=== PATIENT | female | born 1965 | race Asian ===

== ENCOUNTER 2020-02-20 05:50 | Outpatient (RCR) | payer BC ==
[~2020-02-20] VITALS: Ht 157.5 cm; Wt 63.2 kg
[2020-02-20] MEDS ORDERED: HYDR25TA4 PO (12:24)
[2020-02-20] MEDS ORDERED: ATEN25TA PO (12:24)
[2020-02-20] MEDS ORDERED: FAMO-119 PO (12:24)
[2020-02-20] MEDS ORDERED: MV-M1TAB57 PO (12:24)
[2020-02-20] MEDS ORDERED: LOSA100T57 PO (12:24)
== END 2020-02-20 12:25 | disposition home or self-care (01) ==
LOC: PREOP 05:50
PROVIDERS: ATTEND Surgery
DX: Z01.818 Encounter for other preprocedural examination (principal)

== ENCOUNTER → 2020-02-22 | Outpatient (CLI) | payer BC ==
[~2020-02-22] MED LIST: ATEN25TA PO; FAMO-119 PO; HYDR25TA4 PO; LOSA100T57 PO; MV-M1TAB57 PO
== END ==
LOC: LAB FS 09:59
PROVIDERS: ATTEND Surgery
DX: K21.9 Gastro-esophageal reflux disease without esophagitis (principal); Z20.828 Contact with and (suspected) exposure to other viral communicable diseases; Z85.048 Personal history of other malignant neoplasm of rectum, rectosigmoid junction, and anus
CPT/HCPCS: 87635

== ENCOUNTER 2020-02-25 08:44 | Day surgery (SDC) | payer BC ==
[2020-02-25] VITALS (9 sets, daily range): BP systolic 83–139; BP diastolic 50–90
[~2020-02-25] VITALS: Ht 157.5 cm; Wt 63.2 kg
[2020-02-25] MEDS ORDERED: LACTATED RINGERS 1,000 ML IV STA (08:53)
[2020-02-25] MEDS ORDERED: LACTATED RINGERS 1,000 ML IV ONE (08:58)
[2020-02-25] MEDS ORDERED: HURRICAINE EXT TUBE (BENZOCAINE) XX PRN (09:00)
--- OUTSIDE RECORDS SUMMARY | 2020-02-25 09:00 | XMS REPORT | Continuity of Care Document ---
Author Organization Unknown Address Unknown Phone Unavailable Allergies Active Description Code Type Severity Reaction Onset Reported/Identified Relationship to Patient Clinical Status Yes No Known Drug Allergies [id number] Drug Allergy Unknown N/A 02/20/2020 Medications There is no data. Problems Date Dx Coded Attending Type Code Diagnosis Diagnosed By 02/20/2020 SUZY LOPEZ DO Ot Z01.8 18 ENCOUNTER FOR OTHER PREPROCEDURAL EXAMIN Procedures There is no data. Results Test Result Range LIPID PANEL - 01/03/19 10:49 CHOLESTEROL, TOTAL 211 mg/dL <200 HDL CHOLESTEROL 60 mg/dL >50 TRIGLYCERIDES 169 mg/dL <150 LDL-CHOLESTEROL 122 mg/dL (calc) NRG CHOL/HDLC RATIO 3.5 (calc) <5.0 NON HDL CHOLESTEROL 151 mg/dL (calc) <13 0 GLUCOSE, SERUM - 01/03/19 10:49 GLUCOSE 106 mg/dL 65-99 Encounters ACCT No. Visit Date/Time Discharge Status Pt. Type Provider Facility Loc./Unit Complaint [id number] 02/14/2020 15:15:00 02/14/2020 23:59: 59 CLS Outpatient JOSE DAMON [facility] [id number] 01/03/2019 17:15:00 Document Registration [id number] 02/20/2020 05:50:00 020 12:25:00 DIS Outpatient SUZY LOPEZ DO [facility] PREOP COLONOSCOPY/EGD [id number] 02/25/2020 08:44:[address] Outpatient SUZY LOPEZ DO [facility] ENDO HX RECTAL CA/REFLUX [id number] 02/22/2020 09:59:[address] Outpatient SUZY LOPEZ DO [facility] LAB FS PRE OP REQUIREMENT
[2020-02-25] MEDS ORDERED: PROPOFOL INJECTION 50 ML IV ONE ×2 (09:14→09:20)
[2020-02-25] MEDS ORDERED: MIDAZOLAM 2 MG/2 ML (VERSED) VIAL ONE (09:14)
--- NOTE | 2020-02-25 09:15 | Progress Note-Pre Operative ---
Pre-Operative Progress Note H&P Reviewed The H&P was reviewed, patient examined and no changes noted. Time Seen by Provider: 09:14 Date H&P Reviewed: Feb 25, 2020 Time H&P Reviewed: 09:15 Pre-Operative Diagnosis: Hx of Rectal CA, Gastritis SUZY LOPEZ DO Feb 25, 2020 09:15
--- NOTE | 2020-02-25 10:01 | Progress Note-Post Operative ---
Post-Operative Progess Note Surgeon (s)/Compliance Review Officer (s) Surgeon SUZY LOPEZ DO Compliance Review Officer: TULIO MitchellII Pre-Operative Diagnosis Hx of Rectal CA, Gastritis Post-Operative Diagnosis Gastritis Hiatal hernia Internal Hemorrhoids Procedure & Operative Findings Date of Procedure 02/25/20 Procedure Performed/Findings EGD with bx Colonoscopy Anesthesia Type IV sedation by DATABASE SUPPORT Estimated Blood Loss Estimated blood loss (mL): scant Specimens/Packing Specimens Removed antral bx body of stomach bx GE jxn bx SUZY LOPEZ DO Feb 25, 2020 10:01
--- NOTE | 2020-02-25 10:02 | Endoscopy Discharge Instruct ---
Endo Procedure/Findings Findings 1.: Gastritis 2.: Hiatal Hernia 3.: Internal Hemorrhoids Discharge Instructions - Activity: You might feel a little sleepy until tomorrow. This is due to the medicine you received to relax you. Until tomorrow, you should: NOT drive a car, operate machinery or power tools. NOT drink any alcoholic beverages. NOT make any important decisions or sign importortant papers. Do not return to work until tomorrow, unless otherwise instructed. Resume previous activities tomorrow. Diet: Start by taking liquids. If you tolerate liquids, advance to solid food. 1.: Colonscopy in 5 years, EGD in 3 years Notify Physician - If you experience excessive bleeding, unusual abdominal pain, fever, or chest pain, contact your doctor immediately. SUZY LOPEZ DO Feb 25, 2020 10:02
--- NOTE | 2020-02-25 12:08 | Anesthesia-General Post-Op ---
MAC Patient Condition Mental Status/LOC: Same as Preop Cardiovascular: Satisfactory Nausea/Vomiting: Absent Respiratory: Satisfactory Pain: Controlled Complications: Absent Post Op Complications Complications None Follow Up Care/Instructions Patient Instructions None needed. Anesthesiology Discharge Order Discharge Order Patient is doing well, no complaints, stable vital signs, no apparent adverse anesthesia problems. No complications reported per nursing. KENDALL ROJAS CRNA Feb 25, 2020 12:08
--- NOTE | 2020-02-25 15:15 | OPERATIVE REPORT ---
DATE OF SERVICE: PREOPERATIVE DIAGNOSES: Gastritis, history of rectal cancer. POSTOPERATIVE DIAGNOSES: Gastritis, hiatal hernia, questionable gastric ulcer. Internal hemorrhoids. PROCEDURES: 1. EGD with biopsy. 2. Colonoscopy. SURGEON: Erik Ortega DO RAG PRODUCTION WORKER: Marissa Rai, 3. SPECIMEN: Antral biopsy, biopsy from an ulcer in the body of stomach and then biopsy of the GE junction. BLOOD LOSS: Scant. FLUIDS: Per anesthesia. POSTOPERATIVE CONDITION: Stable. INDICATION FOR PROCEDURE: The patient is a 55-year-old female who states she has a history of rectal cancer that she had "scraped off" and she had some gastritis and needed a workup. FINDINGS: The patient had some mild gastritis what looked like an ulcer in the stomach and possibly a small hiatal hernia. In the colon, she only had some internal hemorrhoids. No other obvious pathology. PROCEDURE NOTE: After informed consent was obtained, the patient was brought to the endoscopy suite, placed in bed in left lateral decubitus position. She was administered IV sedation by the NAIL POLISH BRUSH MACHINE FEEDER who then monitored her vitals the entire time, heart rate, blood pressure and pulse ox and we started with the EGD, placing scope down the mouth through the esophagus into the stomach, pushed towards the antrum. Antrum looked like there is some mild gastritis, took a picture, pushed into the duodenum. Duodenum looked fine. Pulled back and did a biopsy of the antrum. Retroflexed the scope, saw what looked like some bleeding and then possible ulcer, did a biopsy right around this ulcer and also saw a small hiatal hernia, took a picture of this and then pulled the scope into the GE junction, did another biopsy, then pushed the scope into the stomach, suctioned the air out and then pulled the scope up the esophagus and out the mouth. Switched camera, switched gloves, went down below, started the colonoscopy, pushed in to about 140 cm, able to get all the way to cecum, took a picture of appendiceal orifice and then able to get into the terminal ileum, took a picture and then slowly withdrew the scope, insufflating the circumferential bauer looking at the cecum up the ascending colon to the hepatic flexure, then down the transverse colon, splenic flexure, into the descending colon and down into the sigmoid and in the sigmoid, at about 20 to 30 cm, saw some tattooing, looked very closely through here, did not see any polyps or any other pathology and continued down into the rectum, retroflexed in the rectal vault, saw some minimal internal hemorrhoids, took a picture of this and then removed the scope. The patient tolerated the procedure. She was recovered in endoscopy suite. Job ID: [id number] DocumentID: [id number] Dictated Date: 02/25/2020 10:48:13 Certified Medical Coder Date: 02/25/2020 15:14:15 Dictated By: DO MODESTO GREEN
== END 2020-02-25 11:00 | disposition home or self-care (01) ==
LOC: ENDO 08:44
PROVIDERS: ATTEND Surgery
DX: K44.9 Diaphragmatic hernia without obstruction or gangrene (principal); K29.50 Unspecified chronic gastritis without bleeding; K64.8 Other hemorrhoids; K21.0 Gastro-esophageal reflux disease with esophagitis; I10 Essential (primary) hypertension; F41.9 Anxiety disorder, unspecified; Z79.899 Other long term (current) drug therapy; Z85.048 Personal history of other malignant neoplasm of rectum, rectosigmoid junction, and anus; Z83.3 Family history of diabetes mellitus

== ENCOUNTER 2022-05-19 13:31 | Observation (INO) | payer BC ==
[~2022-05-19] VITALS: Ht 152.4 cm; Wt 59.4 kg
[2022-05-19 13:56] LABS: BILIRUBIN,URINE NEGATIVE (NEGATIVE); CLARITY,URINE CLEAR; COLOR,URINE YELLOW; GLUCOSE, URINE (UA) NEGATIVE (NEGATIVE); KETONES,URINE NEGATIVE (NEGATIVE); LEUKOCYTE ESTERASE ,URINE NEGATIVE (NEGATIVE); NITRITE,URINE NEGATIVE (NEGATIVE); PH,URINE 7.5 (5-9); PROTEIN,URINE 1+ (NEGATIVE)
[2022-05-19 14:05] LABS: BACTERIA,URINE NEGATIVE /HPF; RBC,URINE 0-2 /HPF; SQUAMOUS EPITHELIAL CELL,UR RARE /HPF
[2022-05-19] MEDS ORDERED: LACTATED RINGERS 1,000 ML IV ONE (14:30)
[2022-05-19] MEDS ORDERED: ONDANSETRON 4 MG/2 ML (SDV) Z0FRAN IVP ONE (14:30)
[2022-05-19] MEDS ORDERED: fentaNYL INJ 100 MCG/2 ML AMP IVP ONE (14:30)
[2022-05-19 14:32] LABS: ALBUMIN 4.4 GM/DL (3.2-4.5); BILIRUBIN,TOTAL 0.8 MG/DL (0.1-1.0); CALCIUM 9.7 MG/DL (8.5-10.1); CREATININE SERUM 0.67 MG/DL (0.60-1.30); POTASSIUM 2.7 MMOL/L (3.6-5.0); TOTAL PROTEIN 7.9 GM/DL (6.4-8.2)
[2022-05-19] MEDS ORDERED: NS 100 ML (IVPB) BAG IV ONE (15:00)
[2022-05-19] MEDS ORDERED: IOHEXOL 350 MG/ML 100 ML (OMNIPAQUE 350) VIAL IV ONE (15:00)
[2022-05-19] MEDS ORDERED: CATHETER FLUSH 10 ML SYR IV PRN (15:00)
[2022-05-19] MEDS ORDERED: HOLD METFORMIN - RECEIVED CONTRAST 20 ML VIAL IV SCH (15:00)
[2022-05-19] MEDS ORDERED: NS IV 1000 ML 1,000 ML IV SCH (15:00)
[2022-05-19] MEDS ORDERED: PROMETHAZINE INJ 25 MG/ML (PHENERGAN) AMP IVP ONE (15:30)
--- NOTE | 2022-05-19 15:58 | Diagnostic Imaging Report ---
PROCEDURE: CT chest, abdomen, and pelvis with contrast. TECHNIQUE: Multiple contiguous axial images were obtained through the chest, abdomen, and pelvis after the administration of intravenous contrast. Auto Exposure Controls were utilized during the CT exam to meet ALARA standards for radiation dose reduction. INDICATION: Patient with history of colorectal carcinoma. Patient has low back pain and lower abdominal pain and dizziness. No prior studies are available for comparison. CT CHEST: No axillary, hilar or mediastinal lymphadenopathy is detected. No pericardial or pleural fluid is identified. No pulmonary infiltrates, nodules or masses are detected. CT ABDOMEN AND PELVIS: The liver and gallbladder are unremarkable. There is no biliary duct dilatation. Pancreas and spleen are unremarkable. No adrenal mass is detected. Kidneys are unremarkable. There is no hydronephrosis. Aorta is nonaneurysmal. There is an enlarged left para-aortic lymph node measuring 2.0 x 1.9 cm. No definite iliac or inguinal lymphadenopathy is identified. There is indeterminate low-density in the left pelvis just cephalad to the urinary bladder and lateral to the uterus measuring 2 cm. This could represent a lymph node as well. The bladder and uterus are unremarkable. No free fluid is identified. The bowel loops are normal caliber. Bony structures are nonacute. IMPRESSION: 1. Unremarkable CT of the chest. There is no evidence of thoracic lymphadenopathy or pulmonary metastatic disease. 2. Central retroperitoneal lymphadenopathy, concerning for metastatic disease. Questionable density in the right hemipelvis as well and pelvic sonography may be useful for further evaluation on nonemergent basis. No other abnormalities are seen. Dictated by: Dictated on workstation # [id number]
[2022-05-19] MEDS ORDERED: POTASSIUM CL 10MEQ/50ML IVPB 50 ML IV ONE (16:45)
[2022-05-19 16:50] LABS: BASOPHILS % (AUTO) 0 % (0-10); EOSINOPHILS # (AUTO) 0.1 10^3/uL (0.0-0.3); EOSINOPHILS % (AUTO) 1 % (0-10); HEMATOCRIT 34 % (35-52); LYMPHOCYTES # (AUTO) 2.2 10^3/uL (1.0-4.0); LYMPHOCYTES % (AUTO) 19 % (12-44); MEAN CORPUSCULAR HEMOGLOBIN 31 pg (25-34); MEAN CORPUSCULAR HGB CONC 36 g/dL (32-36); MEAN CORPUSCULAR VOLUME 85 fL (80-99); MONOCYTES # (AUTO) 0.7 10^3/uL (0.0-1.0); MONOCYTES % (AUTO) 6 % (0-12); NEUTROPHILS # (AUTO) 8.5 10^3/uL (1.8-7.8); NEUTROPHILS % (AUTO) 74 % (42-75); PLATELET COUNT 219 10^3/uL (130-400); WHITE BLOOD COUNT 11.5 10^3/uL (4.3-11.0)
--- NOTE | 2022-05-19 16:55 | ED Abdominal Pain ---
General Chief Complaint: - Reproductive Stated Complaint: KIDNEY STONES/DIZZY Nursing Triage Note: PT ARRIVED POV WITH COMPLAINTS OF LOWER BACK PAIN, LOWER ABD PAIN, AND DIZZINESS. PT STATED THAT SHE WAS SEEN BY HER PRIMARY CARE PROVIDER AND WAS TOLD THAT SHE HAS A KIDNEY STONE. Source of Information: Patient Exam Limitations: No Limitations History of Present Illness Date Seen by Provider: May 19, 2022 Time Seen by Provider: 13:44 Initial Comments This 57-year-old woman presents to the emergency room with complaints of left lower quadrant pain, nausea, vomiting, and excessive belching since early yesterday morning. She saw Dr. Damon yesterday and was prescribed hydrocodone and Zofran. She feels constipated. She provides little health history except for hypertension and history of colorectal cancer status postsurgical resection. She denies any dysuria or hematuria. She generally feels an easy and dizzy. She has no history of renal stones. Allergies and Home Medications Allergies Coded Allergies: No Known Drug Allergies (Unverified , 02/20/20) Patient Home Medication List Home Medication List Reviewed: Yes Atenolol (Atenolol) 25 Mg Tablet, 25 MG PO DAILY, (Reported) Entered as Reported by: JOÃO JONES on 02/20/20 1224 Famotidine (Pepcid) 20 Mg Tablet, 20 MG PO HS, (Reported) Entered as Reported by: JOÃO JONES on 02/20/20 1224 Hydrochlorothiazide (Hydrochlorothiazide) 25 Mg Tablet, 25 MG PO DAILY, (Reported) Entered as Reported by: JOÃO JONES on 02/20/20 1224 Losartan Potassium (Losartan Potassium) 100 Mg Tablet, 100 MG PO DAILY, (Reported) Entered as Reported by: JOÃO JONES on 02/20/20 1224 Mv-Mn/Folic Acid/Calcium/Vit K (Women's 50 Plus Multivit Tab) 1 Each Tablet, 1 EACH PO DAILY, (Reported) Entered as Reported by: JOÃO JONES on 02/20/20 1224 Review of Systems Review of Systems Constitutional: see HPI, dizziness; No fever EENTM: No Symptoms Reported Respiratory: No Symptoms Reported Cardiovascular: No Symptoms Reported Gastrointestinal: See HPI Genitourinary: See HPI Musculoskeletal: no symptoms reported Skin: no symptoms reported Psychiatric/Neurological: See HPI Endocrine: No Symptoms Reported Hematologic/Lymphatic: No Symptoms Reported Past Dlubvdm-Aeryvn-Bdbujk Hx Patient Social History Tobacco Use?: No Substance use?: No Alcohol Use?: No Immunizations Up To Date Tetanus Booster (TDap): Unknown Influenza Vaccine Up-to-Date: Yes; Up-to-Date Seasonal Allergies Seasonal Allergies: Yes Past Medical History Surgeries: Yes Abdominal (Colorectal cancer resection) Respiratory: No Cardiac: Yes Hypertension Neurological: No Reproductive Disorders: No Genitourinary: No Gastrointestinal: Yes Gastroesophageal Reflux Musculoskeletal: No Endocrine: No HEENT: No Cancer: Yes Rectal Did You Recieve Any Treatments: No Psychosocial: Yes Anxiety Integumentary: Yes (rash on hands) Blood Disorders: No Physical Exam Vital Signs Vital Signs - First Documented 05/19/22 13:45 Pulse 68 B/P (MAP) 158/80 (106) Pulse Ox 98 O2 Delivery Room Air Capillary Refill : Height/Weight/BMI Height: '" Weight: lbs. oz. kg; 25.00 BMI Method: General Appearance: WD/WN, mild distress HEENT: PERRL/EOMI, normal ENT inspection Neck: normal inspection Respiratory: lungs clear, normal breath sounds, no respiratory distress Cardiovascular: regular rate, rhythm, no edema, no murmur Gastrointestinal: normal bowel sounds, soft, tenderness (Left lower) Extremities: normal inspection, no pedal edema Neurologic/Psychiatric: case management director II-XII nml as tested, no motor/sensory deficits, alert, normal mood/affect Skin: normal color, warm/dry Progress/Results/Core Measures Results/Orders Lab Results Laboratory Tests Test 05/19/22 13:45 05/19/22 14:00 Range/Units Urine Color YELLOW Urine Clarity CLEAR Urine pH 7.5 5-9 Urine Specific [place] 1.025 H 1.016-1.022 Urine Protein 1+ H NEGATIVE Urine Glucose (UA) NEGATIVE NEGATIVE Urine Ketones NEGATIVE NEGATIVE Urine Nitrite NEGATIVE NEGATIVE Urine Bilirubin NEGATIVE NEGATIVE Urine Urobilinogen 0.2 < = 1.0 MG/DL Urine Leukocyte Esterase NEGATIVE NEGATIVE Urine RBC (Auto) 1+ H NEGATIVE Urine RBC 0-2 /HPF Urine WBC NONE /HPF Urine Squamous Epithelial Cells RARE /HPF Urine Crystals NONE /LPF Urine Bacteria NEGATIVE /HPF Urine Casts NONE /LPF Urine Mucus NEGATIVE /LPF Urine Culture Indicated NO White Blood Count 11.5 H 4.3-11.0 10^3/uL Red Blood Count 3.93 3.80-5.11 10^6/uL Hemoglobin 12.0 11.5-16.0 g/dL Hematocrit 34 L 35-52 % Mean Corpuscular Volume 85 80-99 fL Mean Corpuscular Hemoglobin 31 25-34 pg Mean Corpuscular Hemoglobin Concent 36 32-36 g/dL Red Cell Distribution Width 11.8 10.0-14.5 % Platelet Count 219 130-400 10^3/uL Mean Platelet Volume 10.0 9.0-12.2 fL Immature Granulocyte % (Auto) 0 % Neutrophils (%) (Auto) 74 42-75 % Lymphocytes (%) (Auto) 19 12-44 % Monocytes (%) (Auto) 6 0-12 % Eosinophils (%) (Auto) 1 0-10 % Basophils (%) (Auto) 0 0-10 % Neutrophils # (Auto) 8.5 H 1.8-7.8 10^3/uL Lymphocytes # (Auto) 2.2 1.0-4.0 10^3/uL Monocytes # (Auto) 0.7 0.0-1.0 10^3/uL Eosinophils # (Auto) 0.1 0.0-0.3 10^3/uL Basophils # (Auto) 0.0 0.0-0.1 10^3/uL Immature Granulocyte # (Auto) 0.0 0.0-0.1 10^3/uL Sodium Level 124 *L 135-145 MMOL/L Potassium Level 2.7 L 3.6-5.0 MMOL/L Chloride Level 83 L 98-107 MMOL/L Carbon Dioxide Level 29 21-32 MMOL/L Anion Gap 12 5-14 MMOL/L Blood Urea Nitrogen 8 7-18 MG/DL Creatinine 0.67 0.60-1.30 MG/DL Estimat Glomerular Filtration Rate 102 BUN/Creatinine Ratio 12 Glucose Level 146 H 70-105 MG/DL Calcium Level 9.7 8.5-10.1 MG/DL Corrected Calcium 9.4 8.5-10.1 MG/DL Magnesium Level 1.8 1.6-2.4 MG/DL Total Bilirubin 0.8 0.1-1.0 MG/DL Aspartate Amino Transf (AST/SGOT) 31 5-34 U/L Alanine Aminotransferase (ALT/SGPT) 43 0-55 U/L Alkaline Phosphatase 69 40-136 U/L C-Reactive Protein High Sensitivity 10.25 H 0.00-0.50 MG/DL Total Protein 7.9 6.4-8.2 GM/DL Albumin 4.4 3.2-4.5 GM/DL Lipase 14 8-78 U/L My Orders Orders - RUPA COOMBS MD Comprehensive Metabolic Panel (05/19/22 13:44) Ua Culture If Indicated (05/19/22 13:44) Ed Iv/Invasive Line Start (05/19/22 13:44) Hs C Reactive Protein (05/19/22 14:22) Lipase (05/19/22 14:22) Ondansetron Injection (Zofran Injectio (05/19/22 14:30) Fentanyl Inj (Sublimaze Injection) (05/19/22 14:30) Lactated Ringers (Lr 1000 Ml Iv Solution (05/19/22 14:30) Ct Chest/Abdomen/Pelvis W (05/19/22 14:53) Ns Iv 1000 Ml (Sodium Chloride 0.9%) (05/19/22 15:00) Iohexol Injection (Omnipaque 350 Mg/Ml 1 (05/19/22 15:00) Received Contrast (Hold Metformin- Contr (05/19/22 15:00) Ns (Ivpb) (Sodium Chloride 0.9% Ivpb Bag (05/19/22 15:00) Sodium Chloride Flush (Catheter Flush Sy (05/19/22 15:00) Promethazine Injection (Phenergan Injec (05/19/22 15:30) Potassium Cl 10meq/50ml Ivpb (Kcl 10 Meq (05/19/22 16:45) Cbc With Automated Diff (05/19/22 16:43) Magnesium (05/19/22 16:43) Code/Resuscitation (05/19/22 17:12) Ed Admission (Communication) (05/19/22 17:15) Medications Given in ED Current Medications Medications Dose Ordered Sig/Katrin Route Start Time Stop Time Status Last Admin Dose Admin Fentanyl Citrate 50 mcg ONCE ONCE IVP 05/19/22 14:30 05/19/22 14:31 DC 05/19/22 14:30 50 MCG Iohexol 100 ml ONCE ONCE IV 05/19/22 15:00 11/2/22 15:01 DC 05/19/22 15:32 62 ML Lactated Ringer's 1,000 ml @ 0 mls/hr Q0M ONCE IV 05/19/22 14:30 05/19/22 14:31 DC 05/19/22 14:30 1,000 MLS/HR Ondansetron HCl 4 mg ONCE ONCE IVP 05/19/22 14:30 05/19/22 14:31 DC 05/19/22 14:30 4 MG Potassium Chloride 50 ml @ 50 mls/hr ONCE ONCE IV 05/19/22 16:45 05/19/22 17:44 DC 05/19/22 16:58 50 MLS/HR Promethazine HCl 25 mg ONCE ONCE IVP 05/19/22 15:30 05/19/22 15:31 DC 05/19/22 15:34 25 MG Sodium Chloride 10 ml NEEDED PRN IV 05/19/22 15:00 05/19/22 15:33 10 ML Sodium Chloride 100 ml ONCE ONCE IV 05/19/22 15:00 05/19/22 15:01 DC 05/19/22 15:33 80 ML Vital Signs/I&O 05/19/22 13:45 Pulse 68 B/P (MAP) 158/80 (106) Pulse Ox 98 O2 Delivery Room Air Blood Pressure Mean: 106 Progress Progress Note #1: Time: 16:57 Progress Note Patient was initially hydrated with a liter of LR. This was followed with normal saline after hyponatremia was identified. Patient is also significantly hypokalemic. Potassium replacement by IV route is now being initiated. Patient had refractory nausea and dry heaving after Zofran. Phenergan was administered. Unfortunately, Phenergan has caused some confusion and somnolence. CT of the abdomen pelvis was obtained and demonstrated retroperitoneal lymphadenopathy concerning for metastatic disease. Progress Note #2: Progress Note Dr. Shoemaker presented to the emergency room on behalf of Dr. Lopez to evaluate patient. He and I discussed the CT findings with her. No immediate action is being taken regarding the retroperitoneal lymphadenopathy. In the short-term, we will concentrate on managing her symptoms and treating her severe electrolyte abnormalities. She is being admitted to Dr. Alvarez. We discussed CODE STATUS and she would like to remain full code at this time. Mentation is improving after cognitive effect of Phenergan is wearing off. Diagnostic Imaging Diagonstic Imaging: CT Plain Films/CT/US/NM/MRI: abdomen, pelvis Comments CT viewed by me and report reviewed. See report below: NAME: TERRIE MUSA REC#: [id number] PT STATUS: REG ER : 1965 PHYSICIAN: RUPA COOMBS MD ADMIT DATE: 05/19/22/ER Draft Date of Exam:05/19/22 CT CHEST/ABDOMEN/PELVIS W PROCEDURE: CT chest, abdomen, and pelvis with contrast. TECHNIQUE: Multiple contiguous axial images were obtained through the chest, abdomen, and pelvis after the administration of intravenous contrast. Auto Exposure Controls were utilized during the CT exam to meet ALARA standards for radiation dose reduction. INDICATION: Patient with history of colorectal carcinoma. Patient has low back pain and lower abdominal pain and dizziness. No prior studies are available for comparison. CT CHEST: No axillary, hilar or mediastinal lymphadenopathy is detected. No pericardial or pleural fluid is identified. No pulmonary infiltrates, nodules or masses are detected. CT ABDOMEN AND PELVIS: The liver and gallbladder are unremarkable. There is no biliary duct dilatation. Pancreas and spleen are unremarkable. No adrenal mass is detected. Kidneys are unremarkable. There is no hydronephrosis. Aorta is nonaneurysmal. There is an enlarged left para-aortic lymph node measuring 2.0 x 1.9 cm. No definite iliac or inguinal lymphadenopathy is identified. There is indeterminate low-density in the left pelvis just cephalad to the urinary bladder and lateral to the uterus measuring 2 cm. This could represent a lymph node as well. The bladder and uterus are unremarkable. No free fluid is identified. The bowel loops are normal caliber. Bony structures are nonacute. IMPRESSION: 1. Unremarkable CT of the chest. There is no evidence of thoracic lymphadenopathy or pulmonary metastatic disease. 2. Central retroperitoneal lymphadenopathy, concerning for metastatic disease. Questionable density in the right hemipelvis as well and pelvic sonography may be useful for further evaluation on nonemergent basis. No other abnormalities are seen. Dictated on workstation # [id number] Dict: 05/19/22 1539 Trans: 05/19/22 1558 [id number] [id number] Interpreted by: MURIEL KINNEY MD Departure Communication (Admissions) Time/Spoke to Admitting y: 17:00 Dr. Alvarez Time/Spoke to Consulting Phy: 17:10 Dr. Shoemaker Impression Primary Impression: Hypokalemia Additional Impressions: Hyponatremia Left lower quadrant abdominal pain Nausea & vomiting Qualified Codes: R11.2 - Nausea with vomiting, unspecified Retroperitoneal lymphadenopathy Disposition: ADMITTED INPATIENT Condition: Stable Admissions Decision to Admit Reason: Admit from ER (General) Decision to Admit/Date: May 19, 2022 Time/Decision to Admit Time: 17:00 Departure-Patient Inst. Referrals: JOSE DAMON MD (PCP/Family) Primary Care Physician Copy Copies To 1: SUZY LOPEZ DO Copies To 2: JOSE DAMON MD, JOSHUA T MD May 19, 2022 16:55
[2022-05-19] MEDS ORDERED: HYOSCYAMINE 0.125 MG (LEVSIN) TAB SL STA (17:53)
[2022-05-19 18:09] VITALS: BP 139/77
[2022-05-19 18:13] VITALS: BP 139/77
[2022-05-19] MEDS ORDERED: CALCIUM CARBONATE 500 MG (TUMS) TAB.CHEW PO PRN (18:15)
[2022-05-19] MEDS ORDERED: diphenhydrAMINE 25 MG TAB (BENADRYL) PO PRN (18:15)
[2022-05-19] MEDS ORDERED: MELATONIN 3 MG TABLET PO PRN (18:15)
[2022-05-19] MEDS ORDERED: LORazepam INJ 2 MG/ML (ATIVAN) VIAL IVP PRN (18:15)
[2022-05-19] MEDS ORDERED: LACTULOSE SYRUP 10GM/15ML (ENULOSE) 30ML UDC PO PRN (18:15)
[2022-05-19] MEDS ORDERED: polyethylene glycoL POWDER 17 GM (MIRALAX) PACK PO PRN (18:15)
[2022-05-19] MEDS ORDERED: BISACODYL 10 MG SUPP (DULCOLAX) PR PRN (18:15)
[2022-05-19] MEDS ORDERED: ANTACID SUSP 30 ML UDC (MYLANTA) PO PRN (18:15)
[2022-05-19] MEDS ORDERED: HYDROmorphone 2 MG/ML VIAL (DILAUDID) IV PRN (18:15)
[2022-05-19] MEDS ORDERED: ONDANSETRON 4 MG (ZOFRAN) ORAL DISSOLVE TAB PO PRN (18:15)
[2022-05-19] MEDS ORDERED: ENOXAPARIN 40 MG/0.4 ML (LOVENOX) SYR SC SCH (18:15)
[2022-05-19] MEDS ORDERED: ACETAMINOPHEN 325 MG TABLET PO PRN (18:15)
[2022-05-19] MEDS ORDERED: MILK OF MAGNESIA 400 MG/5 ML 30 ML UDC PO PRN (18:15)
[2022-05-19] MEDS ORDERED: ONDANSETRON 4 MG/2 ML (SDV) Z0FRAN IV PRN (18:15)
[2022-05-19] MEDS ORDERED: diphenhydrAMINE 50 MG/ML INJ (BENADRYL) IVP PRN (18:15)
[2022-05-19] MEDS ORDERED: morphine IMMEDIATE RELEASE 15 MG TABLET PO PRN (18:15)
[2022-05-19] MEDS: NS IV 1000 ML 1,000 ML IV SCH (18:27)
[2022-05-19] MEDS: POTASSIUM CL 10MEQ/50ML IVPB 50 ML IV SCH ×4 (18:27→21:47)
[2022-05-19] MEDS: SENNOSIDES 8.6 MG (SENOKOT) TAB PO SCH (19:43)
[2022-05-19] MEDS: DOCUSATE SODIUM 100 MG (COLACE) CAP PO SCH (19:43)
[2022-05-19 20:22] VITALS: BP 118/77
--- NOTE | 2022-05-19 20:36 | Consultation - Surgery ---
History of Present Illness History of Present Illness Patient Consulted On(sofiya/time) 05/19/22 20:33 Date Seen by Provider: May 19, 2022 Time Seen by Provider: 20:33 History of Present Illness Consult requested by Dr. Alvarez for nausea vomiting lower abdominal pain history of colorectal cancer. Patient is a 57-year-old female who yesterday began having episodes of nausea vomiting lower abdominal pain. Patient was given some hydrocodone and Zofran by her primary care provider which was improving so she came to the emergency department for further evaluation. Patient had multiple episodes of emesis. In order to get her emesis under control in the ER she was given Phenergan however this made her slightly sedated. Patient is able to answer questions but is slightly slow to do so. Pain in lower abdomen. Moderate pain no radiation. She has some family members with her as well. Patient with history of colorectal cancer which they states this was cut out and not required to have any further treatment. This was done at [facility] they believe in 2016. Patient in 2019 had a EGD and colonoscopy. She has not had any further investigation. Patient had a CT scan which demonstrated:IMPRESSION: 1. Unremarkable CT of the chest. There is no evidence of thoracic lymphadenopathy or pulmonary metastatic disease. 2. Central retroperitoneal lymphadenopathy, concerning for metastatic disease. Questionable density in the right hemipelvis as well and pelvic sonography may be useful for further evaluation on nonemergent basis. No other abnormalities are seen Allergies and Home Medications Allergies Coded Allergies: No Known Drug Allergies (Unverified , 02/20/20) Patient Home Medication List Home Medication List Reviewed: Yes Atenolol (Atenolol) 25 Mg Tablet, 25 MG PO DAILY, (Reported) Entered as Reported by: JOÃO JONES on 02/20/20 1224 Famotidine (Pepcid) 20 Mg Tablet, 20 MG PO HS, (Reported) Entered as Reported by: JOÃO JONES on 02/20/20 1224 Hydrochlorothiazide (Hydrochlorothiazide) 25 Mg Tablet, 25 MG PO DAILY, (Reported) Entered as Reported by: JOÃO JONES on 02/20/20 1224 Losartan Potassium (Losartan Potassium) 100 Mg Tablet, 100 MG PO DAILY, (Reported) Entered as Reported by: JOÃO JONES on 02/20/20 1224 Mv-Mn/Folic Acid/Calcium/Vit K (Women's 50 Plus Multivit Tab) 1 Each Tablet, 1 EACH PO DAILY, (Reported) Entered as Reported by: JOÃO JONES on 02/20/20 3791 Past Uptvgld-Vppnec-Qspcrc Hx Patient Social History Recent Hopitalizations: No Alcohol Use?: No Have you traveled recently?: No Immunizations Up To Date Tetanus Booster (TDap): Unknown Seasonal Allergies Seasonal Allergies: Yes Surgeries History of Surgeries: Yes Surgeries: Abdominal (Colorectal cancer resection) Respiratory History of Respiratory Disorde: No Cardiovascular History of Cardiac Disorders: Yes Cardiac Disorders: Hypertension Neurological History of Neurological Disord: No Reproductive System Hx Reproductive Disorders: No Genitourinary History of Genitourinary Disor: No Gastrointestinal History of Gastrointestinal Di: Yes Gastrointestinal Disorders: Gastroesophageal Reflux Musculoskeletal History of Musculoskeletal Dis: No Endocrine History of Endocrine Disorders: No HEENT History of HEENT Disorders: No Cancer History of Cancer: Yes Cancer: Rectal Psychosocial History of Psychiatric Problem: Yes Behavioral Health Disorders: Anxiety Integumentary History of Skin or Integumenta: Yes (rash on hands) Blood Transfusions History of Blood Disorders: No Reviewed Nursing Assessment Reviewed/Agree w Nursing PMH: Yes Family Medical History Significant Family History: No Pertinent Family Hx Review of Systems-General Constitutional: No chills, No diaphoresis EENTM: No blurred vision, No double vision Respiratory: No cough, No dyspnea on exertion Cardiovascular: No chest pain, No palpitations Gastrointestinal: abdominal pain (LLQ), nausea, vomiting Genitourinary: No decreased output, No discharge Musculoskeletal: No back pain, No gout, No joint pain Skin: No change in color, No change in hair/nails Psychiatric/Neurological: Denies Anxiety, Denies Depressed, Denies Emotional Problems All Other Systems Reviewed Negative Unless Noted: Yes (Negative excepted noted.) Physical Exam-General Problems Physical Exam Vital Signs Vital Signs - First Documented 05/19/22 05/19/22 05/19/22 13:45 18:09 18:13 Temp 36.5 Pulse 68 Resp 18 B/P (MAP) 158/80 (106) Pulse Ox 98 O2 Delivery Room Air FiO2 21 Capillary Refill : General Appearance: WD/WN, no apparent distress HEENT: PERRL/EOMI, normal ENT inspection Neck: non-tender, supple Respiratory: chest non-tender, no respiratory distress, no accessory muscle use Cardiovascular: regular rate, rhythm, no JVD Gastrointestinal: soft, tenderness (lower abdomen) Rectal: deferred (at this time) Back: normal inspection, no CVA tenderness Extremities: normal range of motion, normal inspection Neurologic/Psychiatric: alert, oriented x 3 (but appears fatigued) Skin: normal color, warm/dry Lymphatic: no adenopathy Data Review Labs Laboratory Tests 05/19/22 13:45: Urine Color YELLOW, Urine Clarity CLEAR, Urine pH 7.5, Urine Specific [place] 1.025H, Urine Protein 1+H, Urine Glucose (UA) NEGATIVE, Urine Ketones NEGATIVE, Urine Nitrite NEGATIVE, Urine Bilirubin NEGATIVE, Urine Urobilinogen 0.2, Urine Leukocyte Esterase NEGATIVE, Urine RBC (Auto) 1+H, Urine RBC 0-2, Urine WBC NONE, Urine Squamous Epithelial Cells RARE, Urine Crystals NONE, Urine Bacteria NEGATIVE, Urine Casts NONE, Urine Mucus NEGATIVE, Urine Culture Indicated NO 05/19/22 14:00: White Blood Count 11.5H, Red Blood Count 3.93, Hemoglobin 12.0, Hematocrit 34L, Mean Corpuscular Volume 85, Mean Corpuscular Hemoglobin 31, Mean Corpuscular Hemoglobin Concent 36, Red Cell Distribution Width 11.8, Platelet Count 219, Mean Platelet Volume 10.0, Immature Granulocyte % (Auto) 0, Neutrophils (%) (Auto) 74, Lymphocytes (%) (Auto) 19, Monocytes (%) (Auto) 6, Eosinophils (%) (Auto) 1, Basophils (%) (Auto) 0, Neutrophils # (Auto) 8.5H, Lymphocytes # (Auto) 2.2, Monocytes # (Auto) 0.7, Eosinophils # (Auto) 0.1, Basophils # (Auto) 0.0, Immature Granulocyte # (Auto) 0.0, Sodium Level 124*L, Potassium Level 2.7L , Chloride Level 83L, Carbon Dioxide Level 29, Anion Gap 12, Blood Urea Nitrogen 8, Creatinine 0.67, Estimat Glomerular Filtration Rate 102, BUN/Creatinine Ratio 12, Glucose Level 146H, Calcium Level 9.7, Corrected Calcium 9.4, Magnesium Level 1.8, Total Bilirubin 0.8, Aspartate Amino Transf (AST/SGOT) 31, Alanine Aminotransferase (ALT/SGPT) 43, Alkaline Phosphatase 69, C-Reactive Protein High Sensitivity 10.25H, Total Protein 7.9, Albumin 4.4, Lipase 14 Assessment/Plan Assessment/Plan Assessment/Plan nausea vomiting hypokalemia hyponatremia history of colorectal cancer patient electrolytes being replaced ct scan reviewed and demonstratin. Unremarkable CT of the chest. There is no evidence of thoracic lymphadenopathy or pulmonary metastatic disease. 2. Central retroperitoneal lymphadenopathy, concerning for metastatic disease. Questionable density in the right hemipelvis as well and pelvic sonography may be useful for further evaluation on nonemergent basis. No other abnormalities are seen will order pelvic u/s to further evaluate will try and keep nausea under control with antiemetics repeat labs in am MANISHA VALENCIA DO May 19, 2022 20:36
[2022-05-20 00:37] VITALS: BP 98/62
[2022-05-20] MEDS: NS IV 1000 ML 1,000 ML IV SCH (02:34)
[2022-05-20 04:04] VITALS: BP 119/76
[2022-05-20 05:23] LABS: BASOPHILS % (AUTO) 0 % (0-10); EOSINOPHILS % (AUTO) 1 % (0-10); HEMATOCRIT 30 % (35-52); HEMOGLOBIN 10.8 g/dL (11.5-16.0); LYMPHOCYTES # (AUTO) 3.3 10^3/uL (1.0-4.0); LYMPHOCYTES % (AUTO) 40 % (12-44); MEAN CORPUSCULAR HEMOGLOBIN 31 pg (25-34); MEAN CORPUSCULAR HGB CONC 36 g/dL (32-36); MEAN CORPUSCULAR VOLUME 87 fL (80-99); MEAN PLATELET VOLUME 9.8 fL (9.0-12.2); MONOCYTES # (AUTO) 1.1 10^3/uL (0.0-1.0); MONOCYTES % (AUTO) 13 % (0-12); NEUTROPHILS # (AUTO) 3.9 10^3/uL (1.8-7.8); NEUTROPHILS % (AUTO) 47 % (42-75); PLATELET COUNT 197 10^3/uL (130-400); WHITE BLOOD COUNT 8.3 10^3/uL (4.3-11.0)
[2022-05-20 05:43] LABS: ALBUMIN 3.5 GM/DL (3.2-4.5); BILIRUBIN,TOTAL 0.3 MG/DL (0.1-1.0); CALCIUM 8.8 MG/DL (8.5-10.1); CREATININE SERUM 0.77 MG/DL (0.60-1.30); POTASSIUM 3.1 MMOL/L (3.6-5.0); TOTAL PROTEIN 6.2 GM/DL (6.4-8.2)
--- NOTE | 2022-05-20 06:58 | Progress Note - Surgery ---
[facility] 05/20/22 0658: Subjective Date Seen by a Provider: May 20, 2022 Time Seen by a Provider: 06:54 Subjective/Events-last exam Pt is accompanied by her daughter. She reports pain only in her lower pelvis midline and LLQ. Denies BM but endorses passing gas. She has no other pain at th is time. Objective Exam Vital Signs Date Time Temp Pulse Resp B/P (MAP) Pulse Ox O2 Delivery O2 Flow Rate FiO2 05/20/22 04:04 36.5 61 20 119/76 (90) 98 Room Air 05/20/22 01:00 60 05/20/22 00:37 37.0 59 18 98/62 (74) 99 Room Air 05/19/22 20:22 37.2 59 16 118/77 (91) 99 Room Air 05/19/22 19:45 Room Air 05/19/22 19:19 68 05/19/22 18:13 36.5 65 98 21 05/19/22 18:11 98 Room Air 05/19/22 18:09 36.5 65 18 139/77 (97) Room Air 05/19/22 17:40 158/80 98 Room Air 05/19/22 13:45 68 158/80 (106) 98 Room Air I & O 05/20/22 07:00 Intake Total 2850 ml Output Total 1600 ml Balance 1250 ml Capillary Refill : General Appearance: No Apparent Distress, WD/WN HEENT: PERRL/EOMI, Pharynx Normal Neck: Non Tender, Supple Respiratory: Chest Non Tender, Normal Breath Sounds, No Accessory Muscle Use, No Respiratory Distress Cardiovascular: Regular Rate, Rhythm, No Edema (compression socks on) Gastrointestinal: normal bowel sounds, soft, tenderness (Left lower and hypogastrium) Extremity: Normal Capillary Refill, Normal Inspection Neurologic/Psychiatric: Alert, Oriented x3 Skin: Normal Color, Warm/Dry Lymphatic: No Adenopathy Results Lab Laboratory Tests 05/19/22 13:45: Urine Color YELLOW, Urine Clarity CLEAR, Urine pH 7.5, Urine Specific [place] 1.025H, Urine Protein 1+H, Urine Glucose (UA) NEGATIVE, Urine Ketones NEGATIVE, Urine Nitrite NEGATIVE, Urine Bilirubin NEGATIVE, Urine Urobilinogen 0.2, Urine Leukocyte Esterase NEGATIVE, Urine RBC (Auto) 1+H, Urine RBC 0-2, Urine WBC NONE, Urine Squamous Epithelial Cells RARE, Urine Crystals NONE, Urine Bacteria NEGATIVE, Urine Casts NONE, Urine Mucus NEGATIVE, Urine Culture Indicated NO 05/19/22 14:00: White Blood Count 11.5H, Red Blood Count 3.93, Hemoglobin 12.0, Hematocrit 34L, Mean Corpuscular Volume 85, Mean Corpuscular Hemoglobin 31, Mean Corpuscular Hemoglobin Concent 36, Red Cell Distribution Width 11.8, Platelet Count 219, Mean Platelet Volume 10.0, Immature Granulocyte % (Auto) 0, Neutrophils (%) (Auto) 74, Lymphocytes (%) (Auto) 19, Monocytes (%) (Auto) 6, Eosinophils (%) (Auto) 1, Basophils (%) (Auto) 0, Neutrophils # (Auto) 8.5H, Lymphocytes # (Auto) 2.2, Monocytes # (Auto) 0.7, Eosinophils # (Auto) 0.1, Basophils # (Auto) 0.0, Immature Granulocyte # (Auto) 0.0, Sodium Level 124*L, Potassium Level 2.7L , Chloride Level 83L, Carbon Dioxide Level 29, Anion Gap 12, Blood Urea Nitrogen 8, Creatinine 0.67, Estimat Glomerular Filtration Rate 102, BUN/Creatinine Ratio 12, Glucose Level 146H, Calcium Level 9.7, Corrected Calcium 9.4, Magnesium Level 1.8, Total Bilirubin 0.8, Aspartate Amino Transf (AST/SGOT) 31, Alanine Aminotransferase (ALT/SGPT) 43, Alkaline Phosphatase 69, C-Reactive Protein High Sensitivity 10.25H, Total Protein 7.9, Albumin 4.4, Lipase 14 05/20/22 05:09: White Blood Count 8.3, Red Blood Count 3.48L, Hemoglobin 10.8L, Hematocrit 30L, Mean Corpuscular Volume 87, Mean Corpuscular Hemoglobin 31, Mean Corpuscular Hemoglobin Concent 36, Red Cell Distribution Width 12.2, Platelet Count 197, Mean Platelet Volume 9.8, Immature Granulocyte % (Auto) 0, Neutrophils (%) (Auto) 47, Lymphocytes (%) (Auto) 40, Monocytes (%) (Auto) 13H, Eosinophils (%) (Auto) 1, Basophils (%) (Auto) 0, Neutrophils # (Auto) 3.9, Lymphocytes # (Auto) 3.3, Monocytes # (Auto) 1.1H, Eosinophils # (Auto) 0.0, Basophils # (Auto) 0.0, Immature Granulocyte # (Auto) 0.0, Sodium Level 142, Potassium Level 3.1L, Chloride Level 105, Carbon Dioxide Level 25, Anion Gap 12, Blood Urea Nitrogen 9, Creatinine 0.77, Estimat Glomerular Filtration Rate 90, BUN/Creatinine Ratio 12, Glucose Level 125H, Calcium Level 8.8, Corrected Calcium 9.2, Total Bilirubin 0.3, Aspartate Amino Transf (AST/SGOT) 26, Alanine Aminotransferase (ALT/SGPT) 35, Alkaline Phosphatase 57, Total Protein 6.2L, Albumin 3.5 Assessment/Plan Assessment/Plan Assessment/Plan LLQ pain nausea vomiting- improved hypokalemia and hyponatremia- improved history of colorectal cancer electrolytes being replaced and improving ct scan reviewed and demonstratin. Unremarkable CT of the chest. There is no evidence of thoracic lymphadenopathy or pulmonary metastatic disease. 2. Central retroperitoneal lymphadenopathy, concerning for metastatic disease. Questionable density in the right hemipelvis as well and pelvic sonography may be useful for further evaluation on nonemergent basis. No other abnormalities are seen pelvic U/S to be done this am will try and keep nausea under control with antiemetics MANISHA SHOEMAKER DO 05/21/22 0018: Subjective Subjective/Events-last exam Patient states that she is feeling better. She is not having nausea and vomiting at this time. The pain in her lower abdomen has significantly improved. Patient is having flatus. She denies any fever sweats chills shortness of breath or chest pain. She had ultrasound performed today which did not demonstrate the pelvic mass. She currently denies any nausea vomiting fever sweats chills shortness of breath or chest pain. Objective Exam General Appearance: No Apparent Distress, WD/WN HEENT: PERRL/EOMI, Normal ENT Inspection Neck: Non Tender, Supple Respiratory: Chest Non Tender, No Accessory Muscle Use, No Respiratory Distress Cardiovascular: Regular Rate, Rhythm, No JVD Gastrointestinal: soft, tenderness (lower abdomen minimal today compared to yesterday) Extremity: Normal Capillary Refill, Normal Inspection Neurologic/Psychiatric: Alert, Oriented x3 Skin: Normal Color, Warm/Dry Lymphatic: No Adenopathy Assessment/Plan Assessment/Plan Assessment/Plan LLQ pain nausea vomiting- improved hypokalemia and hyponatremia- improved possible pelvic mass history of colorectal cancer Improving, no surgical intervention at this time may need pet scan or biopsy for pelvic mass which can be arranged outpatient follow up with Oncology and Dr. Ortega will need follow up oupatient with oncology Supervisory-Addendum Brief Verification & Attestation Participated in pt care: history, MDM, physical Personally performed: exam, history, MDM, supervision of care Care discussed with: Medical Student Procedures: n/a Results interpretation: Verified all documentation Verification and Attestation of Medical Student E/M Service A medical student performed and documented this service in my presence. I reviewed and verified all information documented by the medical student and made modifications to such information, when appropriate. I personally performed the physical exam and medical decision making. Manisha Shoemaker, May 20, 2022,23:17 ERIKA CELIS May 20, 2022 06:58 MANISHA SHOEMAKER DO May 21, 2022 00:18
[2022-05-20 08:31] VITALS: BP 118/68
[2022-05-20] MEDS: DOCUSATE SODIUM 100 MG (COLACE) CAP PO SCH (08:56)
[2022-05-20] MEDS: SENNOSIDES 8.6 MG (SENOKOT) TAB PO SCH (08:57)
--- NOTE | 2022-05-20 09:46 | Physical Therapy Evaluation ---
PT Evaluation-General Medical Diagnosis Admission Date May 19, 2022 at 17:16 Medical Diagnosis: lower back and abdominal pain Onset Date: May 19, 2022 Therapy Diagnosis Therapy Diagnosis: independent with ambulation Precautions Precautions/Isolations: Standard Precautions Referral Physician: Franci Alvarez DO Reason for Referral: Evaluation/Treatment Medical History Additional Medical History Past Medical History Surgeries: Yes Abdominal (Colorectal cancer resection) Respiratory: No Cardiac: Yes Hypertension Neurological: No Reproductive Disorders: No Genitourinary: No Gastrointestinal: Yes Gastroesophageal Reflux Musculoskeletal: No Endocrine: No HEENT: No Cancer: Yes Rectal Did You Recieve Any Treatments: No Psychosocial: Yes Anxiety Integumentary: Yes (rash on hands) Blood Disorders: No Reviewed History: Yes Social History Current Living Status: Significant Other Entry Into Home: Stairs With Railing PT Steps Into Home: 3 Patient has a flight of stairs down into the basement. Prior Prior Level of Function SCALE: Activities may be completed with or without assistive devices. 3-Jjbnrjnskv-[id number] completes the activity by him/herself with no assistance from a helper. 5-Set-up or Clean-up Assistance-helper sets up or cleans up; patient completes activity. [place] assists only prior to or following the activity. 4-Supervision or Touching Assistance-helper provides verbal cues and/or touching/steadying and/or contact guard assistance as patient completes activity. Assistance may be provided throughout the activity or intermittently. 3-Partial/Moderate Assistance-helper does LESS THAN HALF the effort. [place] lifts, holds or supports trunk or limbs, but provides less than half the effort. 2-Substantial/Maximal Assistance-helper does MORE THAN HALF the effort. [place] lifts or holds trunk or limbs and provides more than half the effort. 9-Pohedajgn-ugmxvy does ALL the effort. Patient does none of the effort to complete the activity. Or, the assistance of 2 or more helpers is required for the patient to complete the activity. If activity was not attempted, code reason: 7-Patient Refused. 9-Not Applicable-not attempted and the patient did not perform the activity before the current illness, exacerbation or injury. 10-Not Attempted due to Environmental Limitations-(lack of equipment, weather restraints, etc.). 88-Not Attempted due to Medical Conditions or Safety Concerns. Bed Mobility: 6 Transfers (B,C,W/C): 6 Gait: 6 Stairs: 6 Indoor Mobility (Ambulation): Independent Stairs: Independent PT Evaluation-Current Subjective Patient in bed pre tx, has unrated pain in lower abdomen, agrees to PT. Pt/Family Goals to be independent at home Objective Patient Orientation: Person, Place, Situation Attachments: IV ROM/Strength ROM Lower Extremities WNL Strength Lower Extremities BLE grossly 5/5 Sensory Hearing: Functional Sensation Right Lower Extremit: Intact Sensation Left Lower Extremity: Intact Transfers Roll Left to Right (QC): 6 Sit to Lying (QC): 6 Lying to Sitting/Side of Bed(Q: 6 Sit to Stand (QC): 6 Gait Walk 10 feet (QC): 6 Walk 50 ft with 2 Turns(QC): 6 Distance: 100' Gait Assistive Device: None Comments/Gait Description independent ambulation, patient pushed her own IV pole, no dizziness or light headedness Balance Sitting Static: Normal Sitting Dynamic: Normal Standing Static: Normal Standing Dynamic: Normal Assessment/Needs Patient in bed post tx with nurse call, phone, tray, all needs met. Patient is independent with mobility, patient states her symptoms have resolved. Patient will be discharged from PT at this time. Rehab Potential: Good PT Plan Treatment/Plan Treatment Plan: Discontinue PT Treatment Duration: May 20, 2022 Frequency: Safety Risks/Education Patient Education: Gait Training, Transfer Techniques, Correct Positioning, Safety Issues Teaching Recipient: Patient Teaching Methods: Demonstration, Discussion Response to Teaching: Verbalize Understanding, Return Demonstration Discharge Recommendations Plan DC Time Time In: 915 Time Out: 925 DATE: May 20, 2022 Total Billed Treatment Time: 10 Total Billed Treatment 1 visit DIRK ESTRELLA PT May 20, 2022 09:46
[2022-05-20] MEDS ORDERED: POTASSIUM CL 10MEQ/50ML IVPB 50 ML IV SCH (10:30)
--- NOTE | 2022-05-20 10:31 | Occ Therapy Progress Note ---
Therapy Progress Note Orders received and chart reviewed. At arrival, Pt politely declined services as she has no concerns with any self-care tasks and is doing "fine". Pt and pt's daughter reported her going into bathroom independently today. PT reports independence with all transfers/mobility. Pt will be d/c from skilled OT services at this time, due to independence with ADLs and pt's request. 1 visit Margi Gonzalez OT May 20, 2022 10:31
--- NOTE | 2022-05-20 10:47 | Diagnostic Imaging Report ---
PROCEDURE: US Non-ob pelvis comp/trans. TECHNIQUE: Multiple realtime grayscale images were obtained of the pelvis in various projections endovaginally. Transabdominal imaging was also performed. INDICATION: Abdominal pain. COMPARISON: CT abdomen and pelvis from 05/19/2022. FINDINGS: The uterus measures 3.9 x 2.4 x 3.2 cm. There is no myometrial mass. The endometrium measures 0.5 cm in thickness. A small amount of simple free fluid is present within the pelvis. Ovaries are not seen due to small size and surrounding bowel gas. Both adnexa are imaged. IMPRESSION: 1. Ovaries are not able to be visualized by transabdominal or transvaginal imaging owing to surrounding bowel gas. 2. The questioned mass on the right pelvic sidewall is also not able to be seen by ultrasound. Dictated by: Dictated on workstation # [id number]
--- NOTE | 2022-05-20 11:05 | History & Physical-Hospitalist ---
KATICINDY 05/20/22 1105: History of Present Illness HPI/Chief Complaint Patient is a 57 year old female with a history of HTN and colorectal cancer managed with resection who presented ot he ED on 05/19 with chief complaint of lower back pain, lower abdominal pain, dizziness, and N/V. The patient first started having these symptoms on 05/18 and saw her PCP who placed her on hydrocodone and Zofran. On 05/19, her symptoms worsened and she called her PCP anum o instructed her to come to the ED. On admission, she was initially given 1L of LR, but was found to have a sodium of 124 and a potassium of 2.7, so she was then placed on normal saline with potassium replacement. A CT of the chest, abdomen, and pelvis showed central retroperitoneal lymphadenopathy concerning for metastatic disease. Patient states that she has not had any pain, N/V, or dizziness today and feels much better. Patient has no new complaints and is non tender on palpation of the abdomen and back. Source: patient, RN/MD Date Seen 05/20/22 Attending Physician Kg Berry MD PCP Admitting Physician: Franci Alvarez DO Attending Physician: Franci Alvarez DO Referring Physician Date of Admission May 19, 2022 at 17:16 Home Medications & Allergies Home Medications Reviewed patient Home Medication Reconciliation performed by pharmacy medication reconciliations railroad signal technician and/or nursing. Patients Allergies have been reviewed. Allergies Allergies Coded Allergies No Known Drug Allergies (Unverified02/20/20) Past Vynsejy-Pvekba-Xxdooe Hx Patient Social History Tobacco Use?: No Use of E-Cig and/or Vaping dev: No Substance use?: No Alcohol Use?: No Pt feels they are or have been: No Immunizations Up To Date Tetanus Booster (TDap): Unknown Seasonal Allergies Seasonal Allergies: Yes Current Status status: No status: No Communicates: Verbally Primary Language: British Preferred Spoken Language: British Is interpretation needed?: No Sensory deficits: Vision impairment Implanted or Applied Medical D: None Past Medical History Surgeries: Abdominal (Colorectal cancer resection) Hypertension Gastroesophageal Reflux Rectal Did You Recieve Any Treatments: No Anxiety Blood Disorders: No Family Medical History No Pertinent Family Hx Review of Systems Constitutional: No chills; dizziness; No fever EENTM: No hearing loss, No blurred vision Respiratory: No cough, No hemoptysis Cardiovascular: No chest pain, No edema Gastrointestinal: abdominal pain (LLQ, no pain today), nausea (None today), vomiting (None today) Genitourinary: No dysuria, No hematuria Musculoskeletal: back pain (Lumbar, none today) Skin: No change in color Psychiatric/Neurological: Denies Numbness, Denies Tremors Physical Exam Physical Exam Vital Signs Vital Signs - First Documented 05/19/22 05/19/22 05/19/22 13:45 18:09 18:13 Temp 36.5 Pulse 68 Resp 18 B/P (MAP) 158/80 (106) Pulse Ox 98 O2 Delivery Room Air FiO2 21 Capillary Refill : Height, Weight, BMI Height: '" Weight: lbs. oz. kg; 25.57 BMI Method: General Appearance: No Apparent Distress, WD/WN HEENT: PERRL/EOMI Neck: Non Tender, Supple Respiratory: Lungs Clear, Normal Breath Sounds Cardiovascular: Regular Rate, Rhythm, No Murmur Gastrointestinal: Non Tender, Soft Rectal: Deferred Back: No CVA Tenderness, No Vertebral Tenderness Extremity: Non Tender, No Pedal Edema Neurologic/Psychiatric: Alert, Oriented x3 Skin: Normal Color, Warm/Dry Lymphatic: No Adenopathy Results Results/Procedures Labs Laboratory Tests 05/19/22 14:00 05/20/22 05:09 Patient resulted labs reviewed. Assessment/Plan Admission Diagnosis Hypokalemia Hyponatremia N/V Abdominal Pain Admission Status: Observation Assessment and Plan Hypokalemia Hyponatremia N/V History of colorectal cancer Abdominal pain Monitor and replace electrolytes as needed Continue antiemetics Surgery consulted Pain is currently well controlled FRANCI ALVAREZ DO 05/21/22 0508: History of Present Illness Source: patient, RN/MD Exam Limitations: no limitations Time Seen by a Provider: 09:00 Past Lfhszlm-Zwleyp-Ibotbd Hx Patient Social History Marrital Status: single Employed/Student: employed Smoking Status: Never a Smoker Past Medical History Colon Did You Recieve Any Treatments: Yes What Type of Treatment Did You: Surgical Intervention Review of Systems Constitutional: see HPI Gastrointestinal: abdominal pain (LLQ, no pain today), nausea (None today), vomiting (None today) Physical Exam Physical Exam General Appearance: No Apparent Distress Eyes: Right Eye Normal Inspection, Right Eye PERRL HEENT: PERRL/EOMI, TMs Normal, Normal ENT Inspection, Pharynx Normal, Moist Mucous Membranes Neck: Full Range of Motion, Normal Inspection, Non Tender Respiratory: Chest Non Tender, Lungs Clear, Normal Breath Sounds, No Accessory Muscle Use, No Respiratory Distress Cardiovascular: Regular Rate, Rhythm, No Edema, No Gallop, No JVD, No Murmur, Normal Peripheral Pulses Gastrointestinal: Normal Bowel Sounds, No Organomegaly, No Pulsatile Mass, Non Tender, Soft Back: Normal Inspection, No CVA Tenderness, No Vertebral Tenderness Extremity: Normal Capillary Refill, Normal Inspection, Normal Range of Motion, Non Tender, No Calf Tenderness, No Pedal Edema Neurologic/Psychiatric: Alert, Oriented x3, No Motor/Sensory Deficits, Normal Mood/Affect Skin: Normal Color, Warm/Dry Lymphatic: No Adenopathy Assessment/Plan Admission Diagnosis Assessment: Abdominal pain Dehydration Severe hypokalemia Retroperitoneal lymphadenopathy History of colon cancer Plan: Potassium replacement Admission Status: Observation Supervisory-Addendum Brief Verification & Attestation Participated in pt care: history, MDM, physical Personally performed: exam, history, MDM, supervision of care Care discussed with: Medical Student Procedures: n/a Results interpretation: Verified all documentation Verification and Attestation of Medical Student E/M Service A medical student performed and documented this service in my presence. I reviewed and verified all information documented by the medical student and made modifications to such information, when appropriate. I personally performed the physical exam and medical decision making. Franci Alvarez, May 21, 2022,05:08 CINDY PARIKH May 20, 2022 11:05 FRANCI ALVAREZ DO May 21, 2022 05:08
[2022-05-20 11:45] VITALS: BP 145/87
[2022-05-20] MEDS: KCL 20 MEQ TAB (K-DUR) PO SCH ×2 (11:46→17:02)
[2022-05-20] MEDS ORDERED: LORA10TA7 PO (15:16)
[2022-05-20] MEDS ORDERED: POTA99TA17 PO (15:16)
[2022-05-20] MEDS ORDERED: CYAN-41 PO (15:16)
[2022-05-20] MEDS ORDERED: ACHD5005 PO (15:16)
[2022-05-20] MEDS ORDERED: ALPR0.254 PO (15:16)
[2022-05-20] MEDS ORDERED: PSYL0.526 PO (15:16)
[2022-05-20] MEDS ORDERED: ATOR10TA66 PO (15:16)
[2022-05-20] MEDS ORDERED: CALC600T91 PO (15:16)
[2022-05-20] MEDS ORDERED: L GA1CAP2 PO (15:16)
[2022-05-20] MEDS ORDERED: ASCO-262 PO (15:16)
[2022-05-20] MEDS ORDERED: LEVO-55 PO (15:16)
[2022-05-20] MEDS ORDERED: TURM538C PO (15:16)
[2022-05-20] MEDS ORDERED: CHOL200074 PO (15:16)
[2022-05-20 15:37] VITALS: BP 125/73
[2022-05-20] MEDS ORDERED: POTA-177 PO (16:21)
--- NOTE | 2022-05-20 16:21 | Discharge Summary ---
Discharge Summary Hospital Course Was the Problem List Reviewed?: Yes Problems/Dx: (1) Left lower quadrant abdominal pain Status: Acute (2) Retroperitoneal lymphadenopathy Status: Acute (3) Hyponatremia Status: Acute (4) Hypokalemia Status: Acute (5) Nausea & vomiting Status: Acute Qualifiers: Qualified Codes: R11.2 - Nausea with vomiting, unspecified (6) History of rectal cancer Hospital Course Date of Admission: May 19, 2022 at 17:16 Admission Diagnosis : Family Physician/Provider: Kg Berry MD Date of Discharge: 05/20/22 Discharge Diagnosis: Abdominal pain, nausea, vomiting Hospital Course: see hpi Labs and Pending Lab Test: Laboratory Tests 05/20/22 05:09: White Blood Count 8.3, Red Blood Count 3.48L, Hemoglobin 10.8L, Hematocrit 30L, Mean Corpuscular Volume 87, Mean Corpuscular Hemoglobin 31, Mean Corpuscular Hemoglobin Concent 36, Red Cell Distribution Width 12.2, Platelet Count 197, Mean Platelet Volume 9.8, Immature Granulocyte % (Auto) 0, Neutrophils (%) (Auto) 47, Lymphocytes (%) (Auto) 40, Monocytes (%) (Auto) 13H, Eosinophils (%) (Auto) 1, Basophils (%) (Auto) 0, Neutrophils # (Auto) 3.9, Lymphocytes # (Auto) 3.3, Monocytes # (Auto) 1.1H, Eosinophils # (Auto) 0.0, Basophils # (Auto) 0.0, Immature Granulocyte # (Auto) 0.0, Sodium Level 142, Potassium Level 3.1L, Chloride Level 105, Carbon Dioxide Level 25, Anion Gap 12, Blood Urea Nitrogen 9, Creatinine 0.77, Estimat Glomerular Filtration Rate 90, BUN/Creatinine Ratio 12, Glucose Level 125H, Calcium Level 8.8, Corrected Calcium 9.2, Total Bilirubin 0.3, Aspartate Amino Transf (AST/SGOT) 26, Alanine Aminotransferase (ALT/SGPT) 35, Alkaline Phosphatase 57, Total Protein 6.2L, Albumin 3.5 Home Meds Active Potassium Chloride 10 Meq Tab.er.prt 10 Meq PO DAILY Reported Fiber (Psyllium Husk) 0.52 Gram Capsule 1-3 Ea PO DAILY Vitamin D3 (Cholecalciferol (Vitamin D3)) 50 Mcg (2000 Unit) Capsule 50 Mcg PO DAILY Vitamin C (Ascorbate Calcium) 500 Mg Tablet 500 Mg PO DAILY Vitamin B-12 (Cyanocobalamin (Vitamin B-12)) 1,000 Mcg Tablet 1,000 Mcg PO DAILY Algonomics Health Capsule (l Gasseri/B Bifidum/B Longum) 1.5 Billion Cell Capsule 1 Each PO DAILY Loratadine 10 Mg Tablet 10 Mg PO DAILY Turmeric (Turmeric Root Extract) 538 Mg Capsule 538 Mg PO DAILY Calcium (Calcium Carbonate) 600 Mg Calcium (1500 Mg) Tablet 600 Mg PO DAILY Potassium Gluconate 595 MG (Potassium Gluconate) 595 Mg (99 Mg) Tablet 99 Mg PO DAILY Atorvastatin Calcium 10 Mg Tablet 10 Mg PO HS Hydrocodone-Acetamin 5-325 mg (Hydrocodone/Acetaminophen) 5 Mg-325 Mg Tablet 1 Ea PO Q6H PRN Levofloxacin 500 Mg Tablet 500 Mg PO DAILY FILLED 05-18-2022 #04/26 DAY SUPPLY ALPRAZolam 0.25 Mg Tablet 0.25 Mg PO BID PRN Pepcid (Famotidine) 20 Mg Tablet 20 Mg PO DAILY PRN Hydrochlorothiazide 25 Mg Tablet 25 Mg PO DAILY Losartan Potassium 100 Mg Tablet 100 Mg PO DAILY Atenolol 25 Mg Tablet 25 Mg PO DAILY Assessment/Pt Instructions PCP in 1 week Discharge Planning: <30 minutes discharge planning Discharge Instructions Discharge Diet: Soft Diet Discharge Physical Examination Vital Signs Vital Signs Date Time Temp Pulse Resp B/P (MAP) Pulse Ox O2 Delivery O2 Flow Rate FiO2 05/20/22 15:37 36.4 70 20 125/73 (90) 100 Room Air 05/19/22 18:13 21 General Appearance: No Apparent Distress, WD/WN, Chronically ill Allergies: Coded Allergies: No Known Drug Allergies (Unverified , 02/20/20) Discharge Summary Date of Admission May 19, 2022 at 17:16 Date of Discharge Discharge Date: May 20, 2022 Admission Diagnosis Hypokalemia Hyponatremia N/V Abdominal Pain LORENA CHAO DO May 20, 2022 16:21
[2022-05-20 17:15] VITALS: BP 125/73
== END 2022-05-20 16:19 | disposition home or self-care (01) ==
LOC: EDUNIT# 13:31 → ER 13:34 → UNDOADMOB 17:16 → 4TH 17:16 → UNDODISOB 05-20 17:15
PROVIDERS: ADMIT Internal Medicine; ATTEND Internal Medicine
DX: R10.32 Left lower quadrant pain (principal); E87.6 Hypokalemia; E87.1 Hypo-osmolality and hyponatremia; E86.0 Dehydration; R59.0 Localized enlarged lymph nodes; Z85.048 Personal history of other malignant neoplasm of rectum, rectosigmoid junction, and anus
CPT/HCPCS: 36415; 71260; 74177; 76830; 76856; 80053; 81000; 83690; 83735; 85025; 85027; 86141; 96361; 96366; 96372; 96374; 96375; G0378

== ENCOUNTER 2022-05-25 09:35 | Outpatient (RCR) | payer BC ==
[~2022-05-25 09:35] MED LIST changes: +ACHD5005 PO; +ALPR0.254 PO; +ASCO-262 PO; +ATOR10TA66 PO; +CALC600T91 PO; +CHOL200074 PO; +CYAN-41 PO; +L GA1CAP2 PO; +LEVO-55 PO; +LORA10TA7 PO; +POTA-177 PO; +POTA99TA17 PO; +PSYL0.526 PO; +TURM538C PO
[2022-06-14] MEDS ORDERED: ASPI-999 PO ×2 (16:34)
== END 2022-06-16 | disposition home or self-care (01) ==
LOC: ONC 09:35
PROVIDERS: ATTEND Internal Medicine Hematology & Oncology
DX: R59.9 Enlarged lymph nodes, unspecified (principal); Z85.038 Personal history of other malignant neoplasm of large intestine
CPT/HCPCS: 99204

== ENCOUNTER 2022-06-14 05:34 | Outpatient (CLI) | payer BC ==
[~2022-06-14] VITALS: Ht 152.4 cm; Wt 57.7 kg
[2022-06-14] MEDS ORDERED: ASPI-999 PO (16:34)
== END 2022-06-14 16:39 | disposition home or self-care (01) ==
LOC: PREOP 05:34
PROVIDERS: ATTEND Surgery
DX: Z01.818 Encounter for other preprocedural examination (principal)

== ENCOUNTER → 2022-06-18 | Day surgery (SDC) | payer BC ==
[~2022-06-18] MED LIST changes: +ASPI-999 PO; +LIDOCAINE 1% INJ 30 ML (XYLOCAINE) VIAL INJ ONE; +MIDAZOLAM 2 MG/2 ML (VERSED) VIAL IVP ONE; +NS IV 1000 ML 1,000 ML IV STA; +fentaNYL INJ 100 MCG/2 ML AMP IVP ONE
[2022-06-18 07:10] VITALS: BP 136/79
[2022-06-18 07:41] LABS: HEMATOCRIT 34 % (35-52); HEMOGLOBIN 11.5 g/dL (11.5-16.0); MEAN CORPUSCULAR HEMOGLOBIN 31 pg (25-34); MEAN CORPUSCULAR HGB CONC 34 g/dL (32-36); MEAN CORPUSCULAR VOLUME 90 fL (80-99); MEAN PLATELET VOLUME 9.7 fL (9.0-12.2); PLATELET COUNT 207 10^3/uL (130-400); WHITE BLOOD COUNT 6.5 10^3/uL (4.3-11.0)
[2022-06-18 08:14] LABS: INR 0.9 (0.8-1.4)
--- NOTE | 2022-06-18 15:29 | Diagnostic Imaging Report ---
INDICATION: Retroperitoneal lymph node. Patient presents for CT-guided biopsy. TECHNIQUE: All CT scans use one or more of the following dose optimizing techniques: automated exposure control, MA and/or KvP adjustment based on patient size and exam type or iterative reconstruction. Patient was brought to the CT suite placed on table in the prone position. Axial imaging through the abdomen was performed to evaluate appropriate entry site. Reviewing the images the para-aortic lymph node identified at the level of the renal vessels does appear to be smaller in size, now measuring approximately 12 mm x 9 mm compared with 19 mm x [address] from 05/19/2022. Due to significant decrease in size, procedure was canceled. IMPRESSION: Decrease in size of the central retroperitoneal lymph node when compared to examination from one month earlier. Procedure was canceled due to the significant decrease in size of the lesion. Followup CT could be performed to confirm stability and/or continued decrease in size of the lesion. Dictated by: Dictated on workstation # [id number]
== END ==
LOC: RAD 06:53
PROVIDERS: ATTEND Internal Medicine Hematology & Oncology
DX: R59.0 Localized enlarged lymph nodes (principal)
CPT/HCPCS: 36415; 74150; 77012; 85027; 85610; 85730

== ENCOUNTER 2022-06-21 08:14 | Day surgery (SDC) | payer BC ==
[~2022-06-21] VITALS: Ht 152.4 cm; Wt 57.7 kg
[2022-06-21] VITALS (7 sets, daily range): BP systolic 81–135; BP diastolic 52–85
[~2022-06-21 08:14] MED LIST changes: -LIDOCAINE 1% INJ 30 ML (XYLOCAINE) VIAL INJ ONE; -MIDAZOLAM 2 MG/2 ML (VERSED) VIAL IVP ONE; -NS IV 1000 ML 1,000 ML IV STA; -fentaNYL INJ 100 MCG/2 ML AMP IVP ONE
[2022-06-21] MEDS ORDERED: LACTATED RINGERS 1,000 ML IV STA (08:16)
[2022-06-21] MEDS ORDERED: HURRICAINE EXT TUBE (BENZOCAINE) XX PRN (08:30)
--- NOTE | 2022-06-21 08:35 | Progress Note-Pre Operative ---
Pre-Operative Progress Note Date of Available H&P: Jun 08, 2022 Date H&P Reviewed: Jun 21, 2022 Time H&P Reviewed: 08:29 History & Physical: H&P Reviewed, Patient Examed, No changes noted Pre-Operative Diagnosis: Hx of rectal CA, SUZY ESPINOZA DO Jun 21, 2022 08:35
[2022-06-21] MEDS ORDERED: PROPOFOL INJECTION 50 ML IV ONE (09:32)
[2022-06-21] MEDS ORDERED: MIDAZOLAM 2 MG/2 ML (VERSED) VIAL ONE (09:32)
--- NOTE | 2022-06-21 10:17 | Progress Note-Post Operative ---
Post-Operative Progess Note Surgeon (s)/Axle Turner (s) Surgeon SUZY LOPEZ DO Axle Turner: Eliana Valdes, MSIII Pre-Operative Diagnosis Hx of rectal CA, GERD Post-Operative Diagnosis Gastritis Hiatal Hernia Polyp int hemorrhoids Procedure & Operative Findings Date of Procedure 06/21/22 Procedure Performed/Findings EGD with bx Colon with hot bx PROCEDURE NOTE: After informed consent was obtained, the patient was brought to the endoscopy suite, placed in bed in left lateral decubitus position. She was administered IV sedation by the DIPLOMATIC INTERPRETER/TRANSLATOR who then monitored vitals the entire time, heart rate, blood pressure and pulse ox and the scope was inserted down the mouth through the esophagus into the stomach. On the way down, noted some mild esophagitis, took a picture, pushed into the stomach, pushed past the antrum into the duodenum. Duodenum looked good. Pulled back and did a biopsy of antrum, then retroflexed the scope, saw very small hiatal hernia, took a picture of this and then pulled the scope into the GE junction. In the GE jxn did a biopsy and then pushed the scope back into the stomach, suctioned all the air out of the stomach. At this point pulled the scope up the esophagus and out the mouth. Switched camera, switched gloves, went down below and started the colonoscopy. Pushed all the way to about 150 cm and pushed into the cecum, took a picture of the appendiceal orifice and noted the ileocecal valve. Then slowly withdrew the scope insufflating to look circumferentially at the bauer starting in the cecum and up the ascending colon. I found a small polyp and elected to do a hot biopsy to remove it. Then continued up to the hepatic flexure, then down the transverse colon, splenic flexure, into the descending colon and down into the sigmoid. Finally into the rectal vault and retroflexed the scope. Took a picture of the internal hemorr hoids. The patient tolerated the procedure and she recovered in the endoscopy suite. Recommended for repeat colonoscopy in 5 years Anesthesia Type IV sedation by DIPLOMATIC INTERPRETER/TRANSLATOR Estimated Blood Loss Estimated blood loss (mL): scant Specimens/Packing Specimens Removed antral bx GE jxn bx asc Colon polyp SUZY LOPEZ DO Jun 21, 2022 10:17
--- NOTE | 2022-06-21 10:18 | Endoscopy Discharge Instruct ---
Endo Procedure/Findings Findings 1.: Gastritis 2.: Hiatal Hernia 3.: Polyp 4.: Internal Hemorrhoids Discharge Instructions - Activity: You might feel a little sleepy until tomorrow. This is due to the medicine you received to relax you. Until tomorrow, you should: NOT drive a car, operate machinery or power tools. NOT drink any alcoholic beverages. NOT make any important decisions or sign importortant papers. Do not return to work until tomorrow, unless otherwise instructed. Resume previous activities tomorrow. Diet: Start by taking liquids. If you tolerate liquids, advance to solid food. 1.: EGD in 3 years 2.: Colonscopy in 5 years Notify Physician - If you experience excessive bleeding, unusual abdominal pain, fever, or chest pain, contact your doctor immediately. SUZY LOPEZ DO Jun 21, 2022 10:18
--- NOTE | 2022-06-21 11:49 | Anesthesia-General Post-Op ---
MAC Patient Condition Mental Status/LOC: Same as Preop Cardiovascular: Satisfactory Nausea/Vomiting: Absent Respiratory: Satisfactory Pain: Controlled Complications: Absent Post Op Complications Complications None Follow Up Care/Instructions Patient Instructions None needed. Anesthesiology Discharge Order Discharge Order Patient is doing well, no complaints, stable vital signs, no apparent adverse anesthesia problems. No complications reported per nursing. KENDALL ROJAS CRNA Jun 21, 2022 11:49
== END 2022-06-21 11:10 | disposition home or self-care (01) ==
LOC: ENDO 08:14
PROVIDERS: ATTEND Surgery
DX: Z12.11 Encounter for screening for malignant neoplasm of colon (principal); D12.2 Benign neoplasm of ascending colon; K64.8 Other hemorrhoids; K29.50 Unspecified chronic gastritis without bleeding; K44.9 Diaphragmatic hernia without obstruction or gangrene; R19.00 Intra-abdominal and pelvic swelling, mass and lump, unspecified site; Z85.048 Personal history of other malignant neoplasm of rectum, rectosigmoid junction, and anus

== ENCOUNTER 2023-01-08 22:20 | Emergency (ER) | payer OTHER, BC ==
[~2023-01-08] VITALS: Ht 149.8 cm; Wt 61.6 kg
[~2023-01-08 22:20] MED LIST changes: -L GA1CAP2 PO; -LOSA100T57 PO; +LOSA100T58 PO; +PHILLIPS' COLO1 EAC1 PO
[2023-01-08] MEDS ORDERED: HYDROcodone/APAP 5 MG/325 MG (LORTAB) TAB PO ONE (23:00)
[2023-01-08] MEDS ORDERED: TETANUS,DIPTH,PERTUSS P/F (BOOSTRIX) 0.5 ML VIAL IM ONE (23:00)
--- NOTE | 2023-01-08 23:02 | ED Upper Extremity ---
General Chief Complaint: Laceration Stated Complaint: L THUMB LAC Nursing Triage Note: Patient arrival per POV ambulating to ED 1 reporting taking out trash at work at [employer] and the door she was holding open closed on L thumb causing injury. Pressure dsg in place and removal to view an avulsion of the nail from thumb Source: patient Exam Limitations: no limitations History of Present Illness Date Seen by Provider: Jan 08, 2023 Time Seen by Provider: 22:26 Initial Comments 57-year-old female with no pertinent past medical history that is [id number] coming in from work after a door she was holding open at work closed onto her left thumb with her subsequently pulling it back with significant bleeding and pain afterwards. Unsure of her last tetanus vaccine, she believes likely more than 10 years ago. Having constant, moderate, throbbing pain in the left thumb which is better with the pressure dressing. Otherwise denying any other acute complaints. Allergies and Home Medications Allergies Coded Allergies: No Known Drug Allergies (Unverified , 06/14/22) Patient Home Medication List Home Medication List Reviewed: Yes ALPRAZolam (ALPRAZolam) 0.25 Mg Tablet, 0.25 MG PO BID PRN for ANXIETY, (Reported) Entered as Reported by: JUANITA ALARCON on 05/20/22 151 Ascorbate Calcium (Vitamin C) 500 Mg Tablet, 500 MG PO DAILY, (Reported) Entered as Reported by: JUANITA ALARCON on 05/20/22 151 Aspirin (Aspirin) 81 Mg Tab.chew, 81 MG PO DAILY, (Reported) Entered as Reported by: JESUS ALBERTO LEON on 06/14/22 1634 Atenolol (Atenolol) 25 Mg Tablet, 25 MG PO DAILY, (Reported) Entered as Reported by: JOÃO JONES on 02/20/20 1224 Atorvastatin Calcium (Atorvastatin Calcium) 10 Mg Tablet, 10 MG PO HS, (Reported) Entered as Reported by: JUANITA ALARCON on 05/20/22 1516 Calcium Carbonate (Calcium) 600 Mg Calcium (1500 Mg) Tablet, 600 MG PO DAILY, (Reported) Entered as Reported by: JUANITA ALARCON on 05/20/22 1516 Cholecalciferol (Vitamin D3) (Vitamin D3) 50 Mcg (2000 Unit) Capsule, 50 MCG PO DAILY, (Reported) Entered as Reported by: JUANITA ALARCON on 05/20/221515 Cyanocobalamin (Vitamin B-12) (Vitamin B-12) 1,000 Mcg Tablet, 1,000 MCG PO DAILY, (Reported) Entered as Reported by: JUANITA ALARCON on 05/20/221515 Famotidine (Pepcid) 20 Mg Tablet, 20 MG PO DAILY PRN for HEARTBURN, (Reported) Entered as Reported by: JOÃO JONES on 02/20/20 1224 Hydrochlorothiazide (Hydrochlorothiazide) 25 Mg Tablet, 25 MG PO DAILY, (Re ported) Entered as Reported by: JOÃO JONES on 02/20/20 1224 Hydrocodone/Acetaminophen (Hydrocodone-Acetamin 5-325 mg) 5 Mg-325 Mg Tablet, 1 EA PO Q6H PRN for PAIN-MODERATE (5-7), (Reported) Entered as Reported by: JUANITA ALARCON on 05/20/221515 Hydrocodone/Acetaminophen (Hydrocodone-Acetamin 5-325 mg) 5 Mg-325 Mg Tablet, 1 TAB PO Q6H PRN for PAIN-MODERATE (5-7) Prescribed by: COURT FLORES on 01/08/23 2304 Loratadine (Loratadine) 10 Mg Tablet, 10 MG PO DAILY, (Reported) Entered as Reported by: JUANITA ALARCON on 05/20/221515 Losartan Potassium (Losartan Potassium) 100 Mg Tablet, 100 MG PO DAILY, (Reported) Entered as Reported by: JOÃO JONES on 02/20/20 1224 Potassium Gluconate (Potassium Gluconate 595 MG) 595 Mg (99 Mg) Tablet, 99 MG PO DAILY, (Reported) Entered as Reported by: JUANITA ALARCON on 05/20/221515 Psyllium Husk (Fiber) 0.52 Gram Capsule, 1-3 EA PO DAILY, (Reported) Entered as Reported by: JUANITA ALARCON on 05/20/221515 Turmeric Root Extract (Turmeric) 538 Mg Capsule, 538 MG PO DAILY, (Reported) Entered as Reported by: JUANITA ALARCON on 05/20/221515 l Gasseri/B Bifidum/B Longum ([facility] Health Capsule) 1.5 Billion Cell Capsule, 1 EACH PO DAILY, (Reported) Entered as Reported by: JUANITA ALARCON on 05/20/22 4196 Review of Systems Constitutional: No fever EENTM: no symptoms reported Respiratory: no symptoms reported Cardiovascular: no symptoms reported Gastrointestinal: no symptoms reported Genitourinary: no symptoms reported Musculoskeletal: see HPI Skin: see HPI Psychiatric/Neurological: No Symptoms Reported Past Lkgzicj-Chyyjt-Cwbake Hx Patient Social History Tobacco Use?: No Use of E-Cig and/or Vaping dev: No Substance use?: No Alcohol Use?: No Pt feels they are or have been: No Immunizations Up To Date Tetanus Booster (TDap): Unknown First/Initial COVID19 Vaccinat: Date ? Second COVID19 Vaccination Abel: Date ? Third COVID19 Vaccination Date: 2021 COVID19 Vaccine Community Product Specialist: [place]um[place] Seasonal Allergies Seasonal Allergies: Yes Past Medical History Surgery/Hospitalization HX: Hypertension Surgeries: Yes (COLONOSCOPY) Abdominal Respiratory: No Cardiac: Yes High Cholesterol, Hypertension Neurological: Yes Headaches /Migraines Reproductive Disorders: No Genitourinary: No Gastrointestinal: Yes Gastroesophageal Reflux Musculoskeletal: No Endocrine: No HEENT: No Cancer: Yes Colon Did You Recieve Any Treatments: Yes What Type of Treatment Did You: Surgical Intervention Psychosocial: Yes Anxiety Integumentary: Yes (rash on hands RED/-ITCHY) Blood Disorders: No Family Medical History No Pertinent Family Hx Physical Exam Vital Signs Vital Signs - First Documented 01/08/23 22:25 Temp 36.4 Pulse 74 Resp 16 B/P (MAP) 169/91 (117) Pulse Ox 99 O2 Delivery Room Air Capillary Refill : Less Than 3 Seconds Height, Weight, BMI Height: '" Weight: lbs. oz. kg; 27.00 BMI Method: General Appearance: WD/WN, no apparent distress HEENT: PERRL/EOMI, normal ENT inspection, pharynx normal Neck: non-tender, full range of motion, supple, normal inspection Cardiovascular: regular rate, rhythm, no edema, no murmur Respiratory: chest non-tender, lungs clear, normal breath sounds, no respiratory distress, no accessory muscle use Gastrointestinal: normal bowel sounds, non tender, soft; No distended, No guarding, No rebound Back: normal inspection Wrist: Yes normal inspection, Yes non-tender, Yes no evidence of injury, Yes normal ROM Hand: Left (Left thumb avulsion injury with laceration from lateral edge to lateral edge that is 3 cm, is just proximal to the nail with the nailbed being dusky, she does have distal sensation and capillary refill) Neurologic/Tendon: normal sensation, normal motor functions, normal tendon functions Neurologic/Psychiatric: no motor/sensory deficits, alert, normal mood/affect Skin: normal color, warm/dry, other (laceration to left thumb) Procedures/Interventions Wound Location: Upper Extremities Other Wound Location left thumb Wound Length (cm): 3 Wound's Depth, Shape: nail-avulsed, bone Wound Explored: clean Irrigated w/ Saline (ccs): 500 Anesthesia: 1% Lidocaine Volume Anesthetic (ccs): 6 Suture: Ethlion Suture Size: 4-0 Progress 7 simple ruptured sutures were used to try to bring the finger back together, some of the sutures going through the nail since the wound is just against the proximal nailbed. A digital block was performed prior to the procedure with 6 cc of 1% lidocaine with good anesthesia achieved Progress/Results/Core Measures Results/Orders My Orders Orders - COURT FLORES MD Dipht,Pertuss(Acell),Tet Adult (Boostrix (01/08/23 23:00) Hydrocodone/Apap 5/325 Tablet (Lortab 5 (01/08/23 23:00) Finger(S) (01/08/23 22:54) Medications Given in ED Current Medications Medications Dose Ordered Sig/Katrin Route Start Time Stop Time Status Last Admin Dose Admin Acetaminophen/ Hydrocodone Bitart 1 ea ONCE ONCE PO 01/08/23 23:00 01/08/23 23:01 DC 01/08/23 23:03 1 EA Diphtheria/ Tetanus/Acell Pertussis 0.5 ml ONCE ONCE IM 01/08/23 23:00 01/08/23 23:01 DC 01/08/23 23:05 0.5 ML Vital Signs/I&O 01/08/23 22:25 Temp 36.4 Pulse 74 Resp 16 B/P (MAP) 169/91 (117) Pulse Ox 99 O2 Delivery Room Air Blood Pressure Mean: 117 Progress Progress Note : Progress Note 57-year-old female with above history coming in due to an avulsion of the left thumb partially. ABCs were intact and vitals were stable on presentation. The dorsal aspect near the nail was dusky, on the palmar aspect of the thumb did have good capillary refill. The laceration goes to that he depth of the bone. A digital block was performed, it was cleaned extensively, and nonabsorbable suture used with simple interrupted sutures. X-ray ordered and interpreted by me showing fracture through the distal tuft of the thumb. The wound was dressed with antibiotic ointment, Xeroform gauze, and then regular gauze. She was given a metal splint for comfort as well. We gave her materials to change her dressing for the next couple days until she has follow-up with a hand surgeon. Will be sent home on antibiotics as well as pain medication. I believe she is stable for discharge with outpatient follow-up. She was sent home with strict return precautions. Departure Impression Primary Impression: Thumb laceration Qualified Codes: S61.112A - Laceration without foreign body of left thumb wi th damage to nail, initial encounter Additional Impression: Thumb fracture Qualified Codes: S62.522B - Displaced fracture of distal phalanx of left thumb, initial encounter for open fracture Disposition: HOME, SELF-CARE Condition: Stable Departure-Patient Inst. Decision time for Depature: 23:50 Referrals: JOSE DAMON MD (PCP/Family) Primary Care Physician Patient Instructions: Laceration Repair With Stitches ED Add. Discharge Instructions: The stitches need to come out in 10 to 14 days. Change the dressing tomorrow to a new 1. First put on the antibiotic ointment followed by the petroleum based gauze. Then put the regular gauze over it after that. Try to change the dressing at least daily. If the dressing that was put on tonight is too tight, you can take it off before tomorrow. Please follow-up with a hand surgeon to have these removed as well as just following up with a hand surgeon and general given it is a thumb that is very important. 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 You can follow-up with any hand surgeon that takes Worker's Comp. One of the options would be the [facility] orthopedics they can be reached at [phone]. You could also google any hand surgeon, or follow-up with your work if they would prefer you to see a certain hand surgeon. You will need a release from a hand surgeon to be able to use that left hand at work. You will also be on antibiotics for the next week. Scripts Cephalexin (Cephalexin) 500 Mg Tablet 500 MG PO QID for 7 Days, #28 TAB Prov: COURT FLORES MD 01/08/23 Hydrocodone/Acetaminophen (Hydrocodone-Acetamin 5-325 mg) 5 Mg-325 Mg Tablet 1 TAB PO Q6H PRN for PAIN-MODERATE (5-7) for 3 Days, #12 TAB Prov: COURT FLORES MD 01/08/23 Work/School Note: Work Release Form Date Seen in the Emergency Department: Jan 08, 2023 Return to Work: Jan 10, 2023 Restrictions: Need Release from Doctor COURT FLORES MD Jan 08, 2023 23:02
[2023-01-08] MEDS ORDERED: ACHD5005 PO (23:04)
[2023-01-08] MEDS ORDERED: CEPH500T PO (23:46)
[2023-01-08 23:51] VITALS: BP 162/88
--- NOTE | 2023-01-09 07:17 | Diagnostic Imaging Report ---
HISTORY: Left thumb avulsion injury. TECHNIQUE: Frontal view of the hand. Three additional views of the left thumb. COMPARISON: None. FINDINGS: There is a transverse fracture through the tuft of the left thumb distal phalanx with about 3 mm of displacement distally and slight radial displacement. There appears to be overlying soft tissue laceration. No other fractures are seen. Alignment is otherwise normal and joint spaces are preserved. IMPRESSION: Displaced fracture of the left thumb distal phalangeal tuft. Dictated by: Dictated on workstation # [id number]
== END 2023-01-08 23:51 | disposition home or self-care (01) ==
LOC: EDUNIT# 22:20 → ER FS 22:21
DX: S62.522A Displaced fracture of distal phalanx of left thumb, initial encounter for closed fracture (principal); S61.112A Laceration without foreign body of left thumb with damage to nail, initial encounter; Z23 Encounter for immunization; W23.0XXA Caught, crushed, jammed, or pinched between moving objects, initial encounter; Y92.59 Other trade areas as the place of occurrence of the external cause; Y99.0 Civilian activity done for income or pay
CPT/HCPCS: 12002; 64450; 73140; 90715

== ENCOUNTER 2023-03-22 14:54 | Emergency (ER) | payer BC ==
[~2023-03-22] VITALS: Ht 152 cm; Wt 60.0 kg
[~2023-03-22 14:54] MED LIST changes: +CEPH500T PO
[2023-03-22] MEDS ORDERED: fentaNYL INJECTION 100 MCG/2 ML VIAL IVP STA (15:15)
[2023-03-22] MEDS ORDERED: KETOROLAC INJ 15 MG/ML VIAL IVP STA (15:15)
--- NOTE | 2023-03-22 15:26 | ED Chest Pain ---
General Chief Complaint: Post OP Complications/Pain Stated Complaint: LUNG PAIN; LT GROIN PAIN Source: patient History of Present Illness Date Seen by Provider: Mar 22, 2023 Time Seen by Provider: 15:01 Initial Comments 58 yo female presenting with complaint of right sided chest pain since having lung biopsy on March 14. She has had pain since the biopsy but felt the pain was worse since yesterday. She has had some coughing as well. She had to work today so she only took plain acetaminophen for pain and it was not helping. She currently rates her pain at a 5 or 6. She has increased pain with deep breaths and coughing. She denies having any fever, chills, purulent sputum. She has not had any fall or injury to make the pain worse. She is to follow-up tomorrow with oncology for education about chemotherapy and cancer treatment and is to get a port placed for chemotherapy this week. Timing/Duration: 6-7 days Severity/Quality: moderate, sharp, stabbing Radiation: no radiation ASA po LOSS PREVENTION DETECTIVE: No NTG SL LOSS PREVENTION DETECTIVE: No Associated Symptoms: No abdominal pain, No back pain, No diaphoresis, No dizziness, No edema, No fatigue, No fever/chills, No headache, No heartburn, No nausea/vomiting, No rash; shortness of breath; No swelling/lump in chest, No syncope, No weakness Allergies and Home Medications Allergies Coded Allergies: No Known Drug Allergies (Unverified , 06/14/22) Patient Home Medication List Home Medication List Reviewed: Yes ALPRAZolam (ALPRAZolam) 0.25 Mg Tablet, 0.25 MG PO BID PRN for ANXIETY, (Reported) Entered as Reported by: JUANITA ALARCON on 05/20/22 1516 Ascorbate Calcium (Vitamin C) 500 Mg Tablet, 500 MG PO DAILY, (Reported) Entered as Reported by: JUANITA ALARCON on 05/20/22 1516 Aspirin (Aspirin) 81 Mg Tab.chew, 81 MG PO DAILY, (Reported) Entered as Reported by: JESUS ALBERTO LEON on 06/14/22 1634 Atenolol (Atenolol) 25 Mg Tablet, 25 MG PO DAILY, (Reported) Entered as Reported by: JOÃO JONES on 02/20/20 1224 Atorvastatin Calcium (Atorvastatin Calcium) 10 Mg Tablet, 10 MG PO HS, ( Reported) Entered as Reported by: JUANITA ALARCON on 05/20/22 151 Calcium Carbonate (Calcium) 600 Mg Calcium (1500 Mg) Tablet, 600 MG PO DAILY, (Reported) Entered as Reported by: JUANITA ALARCON on 05/20/22 151 Cephalexin (Cephalexin) 500 Mg Tablet, 500 MG PO QID Prescribed by: COURT FLORES on 01/08/23 2346 Cholecalciferol (Vitamin D3) (Vitamin D3) 50 Mcg (2000 Unit) Capsule, 50 MCG PO DAILY, (Reported) Entered as Reported by: JUANITA ALARCON on 05/20/22 151 Cyanocobalamin (Vitamin B-12) (Vitamin B-12) 1,000 Mcg Tablet, 1,000 MCG PO DAILY, (Reported) Entered as Reported by: JUANITA ALARCON on 05/20/221515 Famotidine (Pepcid) 20 Mg Tablet, 20 MG PO DAILY PRN for HEARTBURN, (Reported) Entered as Reported by: JOÃO JONES on 02/20/20 1224 Hydrochlorothiazide (Hydrochlorothiazide) 25 Mg Tablet, 25 MG PO DAILY, (Reported) Entered as Reported by: JOÃO JONES on 02/20/20 1224 Hydrocodone/Acetaminophen (Hydrocodone-Acetamin 5-325 mg) 5 Mg-325 Mg Tablet, 1 EA PO Q6H PRN for PAIN-MODERATE (5-7), (Reported) Entered as Reported by: JUANITA ALARCON on 05/20/221515 Hydrocodone/Acetaminophen (Hydrocodone-Acetamin 5-325 mg) 5 Mg-325 Mg Tablet, 1 TAB PO Q6H PRN for PAIN-MODERATE (5-7) Prescribed by: COURT FLORES on 01/08/23 2304 Loratadine (Loratadine) 10 Mg Tablet, 10 MG PO DAILY, (Reported) Entered as Reported by: JUANITA ALARCON on 05/20/22 151 Losartan Potassium (Losartan Potassium) 100 Mg Tablet, 100 MG PO DAILY, (Reporte d) Entered as Reported by: JOÃO JONES on 02/20/20 1224 Potassium Gluconate (Potassium Gluconate 595 MG) 595 Mg (99 Mg) Tablet, 99 MG PO DAILY, (Reported) Entered as Reported by: JUANITA ALARCON on 05/20/221515 Psyllium Husk (Fiber) 0.52 Gram Capsule, 1-3 EA PO DAILY, (Reported) Entered as Reported by: JUANITA ALARCON on 05/20/221515 Turmeric Root Extract (Turmeric) 538 Mg Capsule, 538 MG PO DAILY, (Reported) Entered as Reported by: JUANITA ALARCON on 05/20/221515 l Gasseri/B Bifidum/B Longum (GetAFive Health Capsule) 1.5 Billion Cell Capsule, 1 EACH PO DAILY, (Reported) Entered as Reported by: JUANITA ALARCON on 05/20/221515 Review of Systems Review of Systems Constitutional: No chills, No fever EENTM: No Symptoms Reported Respiratory: See HPI Cardiovascular: See HPI Gastrointestinal: No Symptoms Reported Genitourinary: No Symptoms Reported Musculoskeletal: no symptoms reported Skin: No change in color, No rash Psychiatric/Neurological: No Symptoms Reported Past Mmxauop-Jhyvea-Irtrpa Hx Patient Social History Tobacco Use?: No Use of E-Cig and/or Vaping dev: No Substance use?: No Alcohol Use?: No Pt feels they are or have been: No Immunizations Up To Date Tetanus Booster (TDap): Unknown First/Initial COVID19 Vaccinat: Date ? Second COVID19 Vaccination Abel: Date ? Third COVID19 Vaccination Date: 2021 Seasonal Allergies Seasonal Allergies: Yes Past Medical History Surgery/Hospitalization HX: COLON CANCER LUNG CANCER Surgeries: Yes (COLONOSCOPY) Abdominal Respiratory: No Cardiac: Yes High Cholesterol, Hypertension Neurological: Yes Headaches /Migraines Reproductive Disorders: No Genitourinary: No Gastrointestinal: Yes Gastroesophageal Reflux Musculoskeletal: No Endocrine: No HEENT: No Cancer: Yes Colon Did You Recieve Any Treatments: Yes What Type of Treatment Did You: Surgical Intervention Psychosocial: Yes Anxiety Integumentary: Yes (rash on hands RED/-ITCHY) Blood Disorders: No Family Medical History No Pertinent Family Hx Physical Exam Vital Signs Vital Signs - First Documented 03/22/23 15:18 Temp 37.2 Pulse 94 Resp 16 B/P (MAP) 151/103 (119) Pulse Ox 96 O2 Delivery Room Air Capillary Refill : Height, Weight, BMI Height: '" Weight: lbs. oz. kg; 27.00 BMI Method: General Appearance: Anxious, Mild Distress Respiratory: Chest Non Tender, Lungs Clear, No Accessory Muscle Use, No Respiratory Distress, Decreased Breath Sounds Cardiovascular: Regular Rate, Rhythm, Normal Peripheral Pulses Gastrointestinal: Normal Bowel Sounds, No Pulsatile Mass, Non Tender, Soft Neurologic/Psychiatric: Alert, Oriented x3 Skin: Normal Color, Warm/Dry; No Ecchymosis Procedures/Interventions Suture Size: 4-0 Progress/Results/Core Measures Results/Orders Lab Results Laboratory Tests Test 03/22/23 15:26 Range/Units White Blood Count 8.8 4.3-11.0 10^3/uL Red Blood Count 3.58 L 3.80-5.11 10^6/uL Hemoglobin 10.8 L 11.5-16.0 g/dL Hematocrit 32 L 35-52 % Mean Corpuscular Volume 89 80-99 fL Mean Corpuscular Hemoglobin 30 25-34 pg Mean Corpuscular Hemoglobin Concent 34 32-36 g/dL Red Cell Distribution Width 12.7 10.0-14.5 % Platelet Count 219 130-400 10^3/uL Mean Platelet Volume 9.2 9.0-12.2 fL Immature Granulocyte % (Auto) 0 % Neutrophils (%) (Auto) 60 42-75 % Lymphocytes (%) (Auto) 29 12-44 % Monocytes (%) (Auto) 9 0-12 % Eosinophils (%) (Auto) 2 0-10 % Basophils (%) (Auto) 0 0-10 % Neutrophils # (Auto) 5.2 1.8-7.8 10^3/uL Lymphocytes # (Auto) 2.5 1.0-4.0 10^3/uL Monocytes # (Auto) 0.8 0.0-1.0 10^3/uL Eosinophils # (Auto) 0.2 0.0-0.3 10^3/uL Basophils # (Auto) 0.0 0.0-0.1 10^3/uL Immature Granulocyte # (Auto) 0.0 0.0-0.1 10^3/uL Prothrombin Time 12.9 12.2-14.7 SEC INR Comment 0.9 0.8-1.4 Activated Partial Thromboplast Time 29 24-35 SEC Sodium Level 138 135-145 MMOL/L Potassium Level 3.6 3.6-5.0 MMOL/L Chloride Level 100 98-107 MMOL/L Carbon Dioxide Level 27 21-32 MMOL/L Anion Gap 11 5-14 MMOL/L Blood Urea Nitrogen 10 7-18 MG/DL Creatinine 0.77 0.60-1.30 MG/DL Estimat Glomerular Filtration Rate 89 BUN/Creatinine Ratio 13 Glucose Level 142 H 70-105 MG/DL Calcium Level 9.5 8.5-10.1 MG/DL Corrected Calcium 9.3 8.5-10.1 MG/DL Magnesium Level 2.2 1.6-2.4 MG/DL Total Bilirubin 0.4 0.1-1.0 MG/DL Aspartate Amino Transf (AST/SGOT) 96 H 5-34 U/L Alanine Aminotransferase (ALT/SGPT) 84 H 0-55 U/L Alkaline Phosphatase 151 H 40-136 U/L Total Protein 7.1 6.4-8.2 GM/DL Albumin 4.3 3.2-4.5 GM/DL My Orders Orders - FANTASMA PARRISH MD Cbc With Automated Diff (03/22/23 15:15) Magnesium (03/22/23 15:15) Comprehensive Metabolic Panel (03/22/23 15:15) Protime With Inr (03/22/23 15:15) Partial Thromboplastin Time (03/22/23 15:15) O2 (03/22/23 15:15) Ed Iv/Invasive Line Start (03/22/23 15:15) Fentanyl Injection (Fentanyl Injection (03/22/23 15:15) Ketorolac Injection (Ketorolac Injection (03/22/23 15:15) Ct Chest W (03/22/23 15:16) Iohexol Injection (Omnipaque 350 Mg/Ml 1 (03/22/23 15:45) Received Contrast (Hold Metformin- Contr (03/22/23 15:45) Ns (Ivpb) 100 Ml (Sodium Chloride 0.9% 1 (03/22/23 15:45) Medications Given in ED Current Medications Medications Dose Ordered Sig/Katrin Route Start Time Stop Time Status Last Admin Dose Admin Iohexol 75 ml ONCE ONCE IV 03/22/23 15:45 03/22/23 15:46 DC 03/22/23 15:59 75 ML Sodium Chloride 100 ml ONCE ONCE IV 03/22/23 15:45 03/22/23 15:46 DC 03/22/23 15:59 80 ML Vital Signs/I&O 03/22/23 03/22/23 15:18 16:47 Temp 37.2 37.2 Pulse 94 94 Resp 16 16 B/P (MAP) 151/103 (119) 151/103 Pulse Ox 96 96 O2 Delivery Room Air Room Air Progress Progress Note #1: Progress Note Differential diagnosis includes pneumothorax, pleuritic chest pain, hemothorax, complication of lung biopsy. Establish peripheral IV access and send for complete blood counts, comprehensive metabolic profile, coagulation factors. CT scan of the chest with IV contrast to look for acute pathology with the lung and looking for active bleeding or abnormality to cause her pleuritic chest pain since having the lung biopsy. Administer fentanyl 50 mcg IV to try and help with pain and along with Toradol 15 mg IV. Her initial oxygen saturation has 96 to 97% on room air. Progress Note #2: Progress Note Complete blood count showed a normal white blood cell count of 8.8. She had mild anemia with a hemoglobin of 10.8. Comprehensive metabolic profile did not show any acute electrolyte abnormality to account for her pain. CT scanning of the chest showed multiple nodules for metastatic disease and a small pleural effusion. There is no pneumothorax. Patient reports improvement in her pain with treatment here in the ED. Counseled to take her pain medicine that she has at home to try and help control her pleuritic chest pain. Keep follow-up with oncology tomorrow and with the port placement at on Tuesday. Diagnostic Imaging Diagonstic Imaging: CT Plain Films/CT/US/NM/MRI: chest Comments [facility], [place] NAME: TERRIE MUSA [facility] REC#: [id number] PT STATUS: DEP ER : 1965 PHYSICIAN: FANTASMA PARRISH MD ADMIT DATE: 03/22/23/ER FS Signed Date of Exam:03/22/[address] CHEST W TECHNIQUE: Multiple contiguous axial images were obtained through the chest with the use of intravenous contrast. All CT scans use one or more of the following dose optimizing techniques: automated exposure control, MA and/or KvP adjustment based on a patient size and exam type, or iterative reconstruction. INDICATION: Chest pain. Previous lung biopsy. COMPARISON: 05/19/2022 CT chest. FINDINGS: Lungs and airway: No abnormality in the trachea. Multiple bilateral pulmonary nodules of varying size have definitively increased since prior CT of 05/19/2022. More recent outside images are not available for comparison. The largest nodule is in the left lower lobe measuring 1.0 x 1.0 cm (image 71, series 5). In total, there are approximately 20 pulmonary nodules on both sides. Right lower lobe subtotal relaxation atelectasis is present. Pleura: Small right pleural effusion is simple in appearance and nonloculated. No pneumothorax. Heart and mediastinum: No supraclavicular or axillary lymphadenopathy. No mediastinal or hilar lymphadenopathy. The heart is normal in size without pericardial effusion. Normal caliber thoracic aorta. Upper abdomen: No worrisome abnormality in the upper abdomen. Musculoskeletal: No lytic or blastic skeletal lesions. IMPRESSION: 1. Bilateral pulmonary nodules of varying sizes are highly concerning for metastatic disease. Correlation with reported recent lung biopsy is recommended. 2. Small simple appearing right-sided pleural effusion. No pneumothorax. Dictated by: Dictated on workstation # [id number] Dict: 03/22/23 1604 Trans: 03/22/23 1721 [facility] [id number] Interpreted by: TAY NICHOLE MD Electronically signed by: TAY NICHOLE MD 03/22/23 172 Reviewed: Reviewed by Me Departure Impression Primary Impression: Acute right-sided thoracic back pain Additional Impressions: Pleuritic chest pain Pleural effusion Disposition: 01 HOME, SELF-CARE Condition: Stable Departure-Patient Inst. Decision time for Depature: 16:18 Referrals: JOSE DAMON MD (PCP/Family) Primary Care Physician Patient Instructions: Pleuritic Chest Pain ED, Pleural Effusion (DC) Add. Discharge Instructions: Take your hydrocodone/acetaminophen for severe pain. Try applying ice to chest wall to help with musculoskeletal pain. Check back with your regular doctors in the clinic for continued concerns. Work/School Note: Work Release Form Date Seen in the Emergency Department: Mar 22, 2023 Return to Work: Mar 28, 2023 Restrictions: No Restrictions FANTASMA PARRISH MD Mar 22, 2023 15:26
[2023-03-22 15:30] LABS: BASOPHILS % (AUTO) 0 % (0-10); EOSINOPHILS # (AUTO) 0.2 10^3/uL (0.0-0.3); EOSINOPHILS % (AUTO) 2 % (0-10); HEMATOCRIT 32 % (35-52); HEMOGLOBIN 10.8 g/dL (11.5-16.0); LYMPHOCYTES # (AUTO) 2.5 10^3/uL (1.0-4.0); LYMPHOCYTES % (AUTO) 29 % (12-44); MEAN CORPUSCULAR HEMOGLOBIN 30 pg (25-34); MEAN CORPUSCULAR HGB CONC 34 g/dL (32-36); MEAN CORPUSCULAR VOLUME 89 fL (80-99); MEAN PLATELET VOLUME 9.2 fL (9.0-12.2); MONOCYTES # (AUTO) 0.8 10^3/uL (0.0-1.0); MONOCYTES % (AUTO) 9 % (0-12); NEUTROPHILS # (AUTO) 5.2 10^3/uL (1.8-7.8); NEUTROPHILS % (AUTO) 60 % (42-75); PLATELET COUNT 219 10^3/uL (130-400); WHITE BLOOD COUNT 8.8 10^3/uL (4.3-11.0)
[2023-03-22] MEDS ORDERED: HOLD METFORMIN - RECEIVED CONTRAST 20 ML VIAL IV SCH (15:45)
[2023-03-22] MEDS ORDERED: NS 100 ML (IVPB) BAG IV ONE (15:45)
[2023-03-22] MEDS ORDERED: IOHEXOL 350 MG/ML 100 ML (OMNIPAQUE 350) VIAL IV ONE (15:45)
[2023-03-22 15:51] LABS: INR 0.9 (0.8-1.4); PROTHROMBIN TIME PATIENT 12.9 SEC (12.2-14.7)
[2023-03-22 16:07] LABS: BILIRUBIN,TOTAL 0.4 MG/DL (0.1-1.0); CALCIUM 9.5 MG/DL (8.5-10.1); CREATININE SERUM 0.77 MG/DL (0.60-1.30); MAGNESIUM 2.2 MG/DL (1.6-2.4); POTASSIUM 3.6 MMOL/L (3.6-5.0)
[2023-03-22 16:08] LABS: ALBUMIN 4.3 GM/DL (3.2-4.5); TOTAL PROTEIN 7.1 GM/DL (6.4-8.2)
--- NOTE | 2023-03-22 16:13 | Diagnostic Imaging Report ---
CT CHEST W TECHNIQUE: Multiple contiguous axial images were obtained through the chest with the use of intravenous contrast. All CT scans use one or more of the following dose optimizing techniques: automated exposure control, MA and/or KvP adjustment based on a patient size and exam type, or iterative reconstruction. INDICATION: Chest pain. Previous lung biopsy. COMPARISON: 05/19/2022 CT chest. FINDINGS: Lungs and airway: No abnormality in the trachea. Multiple bilateral pulmonary nodules of varying size have definitively increased since prior CT of 05/19/2022. More recent outside images are not available for comparison. The largest nodule is in the left lower lobe measuring 1.0 x 1.0 cm (image 71, series 5). In total, there are approximately 20 pulmonary nodules on both sides. Right lower lobe subtotal relaxation atelectasis is present. Pleura: Small right pleural effusion is simple in appearance and nonloculated. No pneumothorax. Heart and mediastinum: No supraclavicular or axillary lymphadenopathy. No mediastinal or hilar lymphadenopathy. The heart is normal in size without pericardial effusion. Normal caliber thoracic aorta. Upper abdomen: No worrisome abnormality in the upper abdomen. Musculoskeletal: No lytic or blastic skeletal lesions. IMPRESSION: 1. Bilateral pulmonary nodules of varying sizes are highly concerning for metastatic disease. Correlation with reported recent lung biopsy is recommended. 2. Small simple appearing right-sided pleural effusion. No pneumothorax. Dictated by: Dictated on workstation # [id number]
[2023-03-22 16:47] VITALS: BP 151/103
== END 2023-03-22 16:47 | disposition home or self-care (01) ==
LOC: EDUNIT# 14:54 → ER FS 14:57
DX: M54.6 Pain in thoracic spine (principal); J90 Pleural effusion, not elsewhere classified; D64.9 Anemia, unspecified
CPT/HCPCS: 36415; 71260; 80053; 83735; 85025; 85610; 85730; Q9967